=== PATIENT | female | born 1950 | race American Indian/Alaskan Native ===

== ENCOUNTER 2017-04-03 16:13 | Emergency (ER) | payer MEDICARE ==
[2017-04-03] MEDS ORDERED: PROVENTIL IH ONE (16:58)
[2017-04-03] MEDS ORDERED: DECADRON IV ONE (16:59)
[2017-04-03 18:22] LABS: Basophils % (Auto) 0.4 % (0.0-1.8); Eosinophils % (Auto) 3.7 % (0.0-4.3); Hematocrit 36.4 % (30.3-42.9); Hemoglobin 11.9 gm/dl (10.1-14.3); Mean Corpuscular HGB Conc 33 % (30-34); Mean Corpuscular Hemoglobin 28 pg (28-32); Mean Corpuscular Volume 85 fl (79-97); Platelet Count 326 K/mm3 (140-440); Red Blood Count 4.29 M/mm3 (3.65-5.03); Red Cell Distribution Width 16.6 % (13.2-15.2); White Blood Count 7.8 K/mm3 (4.5-11.0)
[2017-04-03 18:56] LABS: Anion Gap 18 mmol/L; BUN/Creatinine Ratio 11.66; Blood Urea Nitrogen 7 mg/dL (7-17); Calcium 9.7 mg/dL (8.4-10.2); Carbon Dioxide 23 mmol/L (22-30); Chloride 104.4 mmol/L (98-107); Glucose 127 mg/dL (65-100); Potassium 4.5 mmol/L (3.6-5.0); Sodium 141 mmol/L (137-145)
--- NOTE | 2017-04-03 21:46 | Emergency Department Report ---
HPI - General Chief Complaint: Upper Respiratory Infection Time Seen by Provider: 04/03/17 16:53 - HPI HPI: Patient would cough, congestion, upper respiratory wheezing sent from [facility] with the symptoms lasting about a day. Patient is without fever. Patient is status post CVA. ED Past Medical Hx - Past Medical History Previous Medical History?: Yes Hx Hypertension: Yes Hx Congestive Heart Failure: Yes Hx Diabetes: Yes Hx Seizures: Yes Hx Dementia: Yes - Surgical History Past Surgical History?: No - Social History Smoking Status: Unknown if ever smoked Substance Use Type: None - Medications Home Medications: Home Medications Medication Instructions Recorded Confirmed Last Taken Type Acetaminophen [Tylenol] 2 tab PO PRN 09/13/13 09/13/13 09/13/13 History Aspirin [Aspirin] 1 tab PO DAILY 09/13/13 09/13/13 09/12/13 History Carvedilol [Coreg] 1 tab PO BID 09/13/13 09/13/13 09/13/13 History Clopidogrel Bisulfate [Plavix] 1 tab PO DAILY 09/13/13 09/13/13 09/12/13 History Docusate Sodium [Colace] 1 tab PO TID 09/13/13 09/13/13 09/13/13 History Famotidine [Pepcid] 20 mg PO DAILY 09/13/13 09/13/13 09/13/13 History Fluticasone Propionate [Flonase] 2 spray INNOSTRIL DAILY 09/13/13 09/13/1309/13 History Furosemide [Lasix] 10 mg PO DAILY 09/13/13 09/13/13 09/13/13 History Gabapentin [Neurontin] 1 tab PO TID 09/13/13 09/13/13 09/13/13 History Gemfibrozil [Lopid] 1 tab PO DAILY 09/13/13 09/13/13 09/13/13 History Insulin Glargine,Hum.rec.anlog 20 units SC HS 09/13/13 09/13/13 09/12/13 History [Lantus Solostar] Insulin Regular, Human [HumuLIN R] 6 - 12 units SC AC 09/13/13 09/13/13 Unknown History Latanoprost [Xalatan 0.005% eye 1 drop OU HS 09/13/13 09/13/13 09/12/13 History drops] Loratadine [Claritin] 1 tab PO PRN 09/13/13 09/13/13 Unknown History Losartan [Cozaar] 1 tab PO DAILY 09/13/13 09/13/13 09/13/13 History Magnesium Hydroxide [Milk of 30 ml PO PRN 09/13/13 09/13/13 Unknown History Magnesia] Memantine HCl [Namenda] 1 tab PO BID 09/13/13 09/13/13 09/13/13 History Potassium Chloride [Potassium 1 tab PO DAILY 09/13/13 09/13/13 09/13/13 History Chloride] Sennosides/Docusate Sodium [Senna 1 tab PO BID 09/13/13 09/13/13 09/13/13 History S Tablet] Sertraline [Zoloft] 50 mg PO DAILY 09/13/13 09/13/13 09/13/13 History diphenhydrAMINE [Benadryl] 25 mg PO PRN 09/13/13 09/13/13 Unknown History glipiZIDE [Glucotrol] 10 mg PO BID 09/13/13 09/13/13 09/13/13 History guaiFENesin/DEXTROMETHORPHAN 10 ml PO PRN 09/13/13 09/13/13 Unknown History [Guaifenesin Dm Syrup] hydrALAZINE [Apresoline TAB] 1 tab PO BID 09/13/13 09/13/13 09/13/13 History levETIRAcetam [Keppra] 1 tab PO DAILY 09/13/13 09/13/13 09/13/13 History Azithromycin [Zithromax] 250 mg PO DAILY #6 tablet 04/03/17 Unknown Rx ED Review of Systems ROS: Stated complaint: COUGHING/WHEEZING Other details as noted in HPI Comment: All other systems reviewed and negative ENT: congestion Respiratory: cough, wheezing Physical Exam - Physical Exam Vital Signs: Vital Signs 04/03/17 04/03/17 17:08 18:08 Temperature 98.3 F Pulse Rate 84 Pulse Rate [ 80 Right Middle Lobe] Respiratory 18 Rate Respiratory 20 Rate [Right Middle Lobe] Blood Pressure 140/74 [Left] O2 Sat by Pulse 96 Oximetry Physical Exam: Gen. alert and oriented 3 in no distress Head atraumatic normocephalic Eyes PERR LA EOMI Chest regular rate and rhythm normal S1-S2 lungs mild expiratory wheezing Abdomen soft nondistended Back no point tenderness paravertebral tenderness Neuro no focal deficit. Psych normal mood. ED Course Vital Signs 04/03/17 04/03/17 17:08 18:08 Temperature 98.3 F Pulse Rate 84 Pulse Rate [ 80 Right Middle Lobe] Respiratory 18 Rate Respiratory 20 Rate [Right Middle Lobe] Blood Pressure 140/74 [Left] O2 Sat by Pulse 96 Oximetry ED Medical Decision Making - Lab Data Result diagrams: 04/03/17 18:06 04/03/17 18:06 Critical care attestation.: If time is entered above; I have spent that time in minutes in the direct care of this critically ill patient, excluding procedure time. ED Disposition Clinical Impression: Acute bronchitis Disposition: DC-01 TO HOME OR SELFCARE Is pt being admited?: No Does the pt Need Aspirin: No Condition: Stable Instructions: Acute Bronchitis (ED) Prescriptions: Azithromycin [Zithromax] 250 mg PO DAILY #6 tablet Referrals: PRIMARY CARE, [Primary Care Provider] - 3-5 Days
[2017-04-03 22:31] VITALS: BP 146/92
--- NOTE | 2017-04-04 09:13 | XRay Report ---
Chest 2 views: History shortness of breath. Findings: Marked cardiomegaly the trachea is midline. No consolidation, pneumothorax. Left minimal pleural effusion. Impression: Cardiomegaly. Minimal left pleural effusion.
== END 2017-04-03 22:34 | disposition home or self-care (01) ==
LOC: ED 16:13
DX: J20.9 Acute bronchitis, unspecified (principal); Z79.82 Long term (current) use of aspirin; I10 Essential (primary) hypertension; I50.9 Heart failure, unspecified; E11.9 Type 2 diabetes mellitus without complications; F03.90 Unspecified dementia, unspecified severity, without behavioral disturbance, psychotic disturbance, mood disturbance, and anxiety; Z88.0 Allergy status to penicillin; Z88.8 Allergy status to other drugs, medicaments and biological substances
CPT/HCPCS: 36415; 71020; 80048; 84484; 85025; 93005; 93010; 94640; 96374; 99284; J1100

== ENCOUNTER 2018-04-09 14:42 | Inpatient (IN) | payer MEDICARE ==
[2018-04-09 15:44] LABS: Basophils # (Auto) 0.1 K/mm3 (0.0-0.1); Basophils % (Auto) 0.5 % (0.0-1.8); Eosinophils # (Auto) 0.2 K/mm3 (0.0-0.4); Eosinophils % (Auto) 1.9 % (0.0-4.3); Hematocrit 37.6 % (30.3-42.9); Hemoglobin 12.2 gm/dl (10.1-14.3); Lymphocytes % (Auto) 27.5 % (13.4-35.0); Mean Corpuscular HGB Conc 32 % (30-34); Mean Corpuscular Hemoglobin 27 pg (28-32); Mean Corpuscular Volume 82 fl (79-97); Monocytes # (Auto) 0.5 K/mm3 (0.0-0.8); Monocytes % (Auto) 4.4 % (0.0-7.3); Platelet Count 318 K/mm3 (140-440); Red Cell Distribution Width 18.9 % (13.2-15.2)
[2018-04-09 15:54] LABS: BUN/Creatinine Ratio 12; Blood Urea Nitrogen 6 mg/dL (7-17); Calcium 8.8 mg/dL (8.4-10.2); Hemolysis Index 6
--- NOTE | 2018-04-09 16:56 | XRay Report ---
FINAL REPORT EXAM: XR CHEST ROUTINE 2V HISTORY: Cough, SOB TECHNIQUE: AP portable view of the chest PRIORS: None. FINDINGS: Lines, tubes, and devices: N/A Lungs and pleura: Trachea is normal in position. There is a small lateral left pleural effusion minimal left basilar atelectasis Cardiomediastinal silhouette: Heart is markedly enlarged. Other: Bony structures are intact. IMPRESSION: Small left pleural effusion left basilar atelectasis. Cardiomegaly.
--- NOTE | 2018-04-10 00:18 | Emergency Department Report ---
HPI - General Chief Complaint: Dyspnea/Respdistress Time Seen by Provider: 04/09/18 23:10 - HPI HPI: Room 1 The patient is a 68-year-old female presenting with chief complaint of cough. The patient states she began having a nonproductive cough last month. Family states the patient was being treated at the [facility] cough medication but did not improve. Cough has been persistent and remains nonproductive. The patient's daughter noticed the patient had a "low-grade fever" this week. The patient's family wanted the patient be sent to the emergency department for evaluation however the [facility] sent patient to her staffing and scheduling coordinator's office today for evaluation. The patient had an echocardiogram performed in the office today that was read as "poor study with small pericardial effusion LVEF in the range of 45-50%" the patient was sent to the ED by the staffing and scheduling coordinator for CT scan of the chest to reevaluate the pericardial effusion, rule out pulmonary edema and evaluate for pneumonia given her cough and recent fever. Patient denies shortness of breath, chest pain or pain of any type Location: Pulmonary system Duration: [See above] Quality: Nonproductive Severity: Moderate Modifying factors: [see above] Context: [see above] Mode of transportation: [not driving] ED Past Medical Hx - Past Medical History Hx Hypertension: Yes Hx Congestive Heart Failure: Yes Hx Diabetes: Yes Hx Seizures: Yes Hx Dementia: Yes - Surgical History Past Surgical History?: No - Family History Family history: no significant - Social History Smoking Status: Former Smoker Substance Use Type: None - Medications Home Medications: Home Medications Medication Instructions Recorded Confirmed Last Taken Type Acetaminophen [Tylenol] 2 tab PO PRN 09/13/13 09/13/13 09/13/13 History Aspirin 1 tab PO DAILY 09/13/13 09/13/13 09/12/13 History Carvedilol [Coreg] 1 tab PO BID 09/13/13 09/13/13 09/13/13 History Clopidogrel Bisulfate [Plavix] 1 tab PO DAILY 09/13/13 09/13/13 09/12/13 History Docusate Sodium [Colace] 1 tab PO TID 09/13/13 09/13/13 09/13/13 History Famotidine [Pepcid] 20 mg PO DAILY 09/13/13 09/13/13 09/13/13 History Fluticasone Propionate [Flonase] 2 spray INNOSTRIL DAILY 09/13/13 09/13/1309/13 History Furosemide [Lasix] 10 mg PO DAILY 09/13/13 09/13/13 09/13/13 History Gabapentin [Neurontin] 1 tab PO TID 09/13/13 09/13/13 09/13/13 History Gemfibrozil [Lopid] 1 tab PO DAILY 09/13/13 09/13/13 09/13/13 History Insulin Glargine,Hum.rec.anlog 20 units SC HS 09/13/13 09/13/13 09/12/13 History [Lantus Solostar] Insulin Regular, Human [HumuLIN R] 6 - 12 units SC AC 09/13/13 09/13/13 Unknown History Latanoprost [Xalatan 0.005% eye 1 drop OU HS 09/13/13 09/13/13 09/12/13 History drops] Loratadine [Claritin] 1 tab PO PRN 09/13/13 09/13/13 Unknown History Losartan [Cozaar] 1 tab PO DAILY 09/13/13 09/13/13 09/13/13 History Magnesium Hydroxide [Milk of 30 ml PO PRN 09/13/13 09/13/13 Unknown History Magnesia] Memantine HCl [Namenda] 1 tab PO BID 09/13/13 09/13/13 09/13/13 History Potassium Chloride 1 tab PO DAILY 09/13/13 09/13/13 09/13/13 History Sennosides/Docusate Sodium [Senna 1 tab PO BID 09/13/13 09/13/13 09/13/13 History S Tablet] Sertraline [Zoloft] 50 mg PO DAILY 09/13/13 09/13/13 09/13/13 History diphenhydrAMINE [Benadryl] 25 mg PO PRN 09/13/13 09/13/13 Unknown History glipiZIDE [Glucotrol] 10 mg PO BID 09/13/13 09/13/13 09/13/13 History guaiFENesin/DEXTROMETHORPHAN 10 ml PO PRN 09/13/13 09/13/13 Unknown History [Guaifenesin Dm Syrup] hydrALAZINE [Apresoline TAB] 1 tab PO BID 09/13/13 09/13/13 09/13/13 History levETIRAcetam [Keppra] 1 tab PO DAILY 09/13/13 09/13/13 09/13/13 History Azithromycin [Zithromax] 250 mg PO DAILY #6 tablet 04/03/17 Unknown Rx ED Review of Systems ROS: Stated complaint: CAT SCAN FOR HEART Other details as noted in HPI Constitutional: fever Eyes: denies: eye pain ENT: denies: throat pain Respiratory: cough. denies: shortness of breath Cardiovascular: denies: chest pain Endocrine: no symptoms reported Gastrointestinal: denies: abdominal pain Genitourinary: denies: dysuria Musculoskeletal: denies: back pain Neurological: denies: headache Physical Exam - Physical Exam Vital Signs: Vital Signs 04/09/18 04/09/18 04/09/18 15:05 20:22 20:30 Temperature 98.6 F Pulse Rate 74 Respiratory 18 Rate Blood Pressure 121/55 178/69 O2 Sat by Pulse 94 94 97 Oximetry 04/09/18 04/09/18 04/09/18 20:40 20:46 21:00 Temperature Pulse Rate Respiratory 22 Rate Blood Pressure 178/69 164/57 O2 Sat by Pulse 95 98 97 Oximetry 04/09/18 04/09/18 04/09/18 21:16 21:30 21:46 Temperature Pulse Rate Respiratory Rate Blood Pressure 164/57 170/69 170/69 O2 Sat by Pulse 97 97 96 Oximetry 04/09/18 04/09/18 22:00 22:16 Temperature Pulse Rate Respiratory Rate Blood Pressure 170/67 O2 Sat by Pulse 95 95 Oximetry Physical Exam: GENERAL: The patient is well-developed well-nourished female lying on stretcher not appearing to be in acute distress. [] HEENT: Normocephalic. Atraumatic. Extraocular motions are intact. Patient has moist mucous membranes. NECK: Supple. Trachea midline CHEST/LUNGS: Clear to auscultation. There is no respiratory distress noted. HEART/CARDIOVASCULAR: Regular. There is no tachycardia. There is no gallop rub or murmur. ABDOMEN: Abdomen is soft, nontender. Patient has normal bowel sounds. There is no abdominal distention. SKIN: There is no rash. Patient has tension extremity devices in place. There is no diaphoresis. NEURO: The patient is awake, alert, and oriented. The patient is cooperative. The patient has normal speech MUSCULOSKELETAL: There is no evidence of acute injury. ED Course Vital Signs 04/09/18 04/09/18 04/09/18 15:05 20:22 20:30 Temperature 98.6 F Pulse Rate 74 Respiratory 18 Rate Blood Pressure 121/55 178/69 O2 Sat by Pulse 94 94 97 Oximetry 04/09/18 04/09/18 04/09/18 20:40 20:46 21:00 Temperature Pulse Rate Respiratory 22 Rate Blood Pressure 178/69 164/57 O2 Sat by Pulse 95 98 97 Oximetry 04/09/18 04/09/18 04/09/18 21:16 21:30 21:46 Temperature Pulse Rate Respiratory Rate Blood Pressure 164/57 170/69 170/69 O2 Sat by Pulse 97 97 96 Oximetry 04/09/18 04/09/18 22:00 22:16 Temperature Pulse Rate Respiratory Rate Blood Pressure 170/67 O2 Sat by Pulse 95 95 Oximetry - Consultations Consultation #1: 04/10/18 01:50 Cardiology paged 04/10/18 01:[address] Gallego- recommends admitting patient to the hospital for potential IR pericardiocentesis ED Medical Decision Making - Lab Data Result diagrams: 04/09/18 15:29 04/09/18 15:29 Laboratory Tests 04/09/18 04/09/18 04/10/18 15:29 15:29 Unknown WBC 10.9 RBC 4.60 Hgb 12.2 Hct 37.6 MCV 82 MCH 27 L MCHC 32 RDW 18.9 H Plt Count 318 Lymph % (Auto) 27.5 [place] % (Auto) 4.4 Eos % (Auto) 1.9 Baso % (Auto) 0.5 Lymph # 3.0 [place] # 0.5 Eos # 0.2 Baso # 0.1 Seg Neutrophils % 65.7 Seg Neutrophils # 7.2 Sodium 131 L Potassium 4.0 Chloride 94.1 L Carbon Dioxide 26 Anion Gap 15 BUN 6 L Creatinine 0.5 L Estimated GFR > 60 BUN/Creatinine Ratio 12 Glucose 140 H Calcium 8.8 Total Creatine Kinase 62 CK-MB (CK-2) 1.4 CK-MB (CK-2) Rel Index 2.2 Troponin T < 0.010 NT-Pro-B Natriuret Pep 51.33 - Radiology Data Radiology results: report reviewed (chest x-ray, CT chest), image reviewed (CT chest, chest x-ray) interpreted by me: Chest x-ray-left costophrenic angle obscured/pleural effusion [facility] [address] [place] [address] Cat Scan Report Signed Patient: BERYL MADDEN MR#: [id number] : 1950 Acct:[id number] Age/Sex: 68 / F ADM Date: 04/09/18 Loc: ED Attending Dr: Ordering Physician: ADAMA SANTIAGO MD Date of Service: 04/09/18 Procedure(s): CT angio chest Accession Number(s): [id number] cc: ADAMA SANTIAGO MD FINAL REPORT EXAM: CT ANGIO CHEST HISTORY: shortness of breath. History of pericardial effus TECHNIQUE: A CT angiogram was performed following the intravenous injection of iodinated contrast. Sagittal and coronal MIP reconstructions were reviewed. FINDINGS: The heart size is normal. There is moderate size pericardial effusion. There is no evidence of pulmonary embolus or vascular congestion. The lungs reveal atelectatic changes in both lower lobes and in the lingula pleural fluid is not seen. There is no evidence of adenopathy. The thoracic aorta is normal in caliber. There is no evidence of dissection. At the thoracic inlet the thyroid gland appears normal. In the upper abdomen the adrenal glands are not enlarged. The skeletal structures reveal multilevel disc degeneration in the dorsal spine. IMPRESSION: Moderate size pericardial effusion. No evidence of pulmonary embolus, or vascular congestion. Mild atelectatic changes in both lower lobes and to lesser extent in the lingula. Transcribed By: RB Dictated By: SAMMIE ROSS MD Electronically Authenticated By: SAMMIE ROSS MD Signed Date/Time: 04/10/18140 DD/ 0 TD/TT: 04/10/18140 Critical care attestation.: If time is entered above; I have spent that time in minutes in the direct care of this critically ill patient, excluding procedure time. ED Disposition Clinical Impression: Pericardial effusion, Cough Disposition: OP ADMIT IP TO THIS HOSP Is pt being admited?: Yes Does the pt Need Aspirin: No Condition: Stable Referrals: PRIMARY CARE, [Primary Care Provider] - 3-5 Days Time of Disposition: 01:56 (hospitalist paged (Dr Nunez))
[2018-04-10 01:05] LABS: Creatine Kinase MB 1.4 ng/mL (0.0-4.0)
--- NOTE | 2018-04-10 01:46 | Cat Scan Report ---
FINAL REPORT EXAM: CT ANGIO CHEST HISTORY: shortness of breath. History of pericardial effus TECHNIQUE: A CT angiogram was performed following the intravenous injection of iodinated contrast. Sagittal and coronal MIP reconstructions were reviewed. FINDINGS: The heart size is normal. There is moderate size pericardial effusion. There is no evidence of pulmonary embolus or vascular congestion. The lungs reveal atelectatic changes in both lower lobes and in the lingula pleural fluid is not seen. There is no evidence of adenopathy. The thoracic aorta is normal in caliber. There is no evidence of dissection. At the thoracic inlet the thyroid gland appears normal. In the upper abdomen the adrenal glands are not enlarged. The skeletal structures reveal multilevel disc degeneration in the dorsal spine. IMPRESSION: Moderate size pericardial effusion. No evidence of pulmonary embolus, or vascular congestion. Mild atelectatic changes in both lower lobes and to lesser extent in the lingula.
[2018-04-10] MEDS ORDERED: SODIUM CHLORIDE FLUSH SYRINGE 10 ML IV PRN (03:13)
[2018-04-10] MEDS ORDERED: ZOFRAN IV PRN (03:13)
[2018-04-10] MEDS ORDERED: NORCO 5/325 PO PRN (03:13)
[2018-04-10] MEDS ORDERED: TYLENOL PO PRN (03:13)
[2018-04-10] MEDS ORDERED: D50W (25GM) Syringe IV PRN (03:17)
--- NOTE | 2018-04-10 04:29 | History and Physical Report ---
History of Present Illness Date of examination: 04/10/18 Date of admission: 04/10/18 Chief complaint: Cough History of present illness: Patient is a 68-year-old -[place] female with history of CHF and CVA, [facility] who was sent to the ED by the geophysical e logger for further evaluation of an abnormal finding on her echocardiogram. Per the patient's daughter, she has been having persistent cough for the past 1 month. This was initially evaluated with a chest x-ray which showed mild pleural effusion. Thereafter, she had an echocardiogram done which showed EF of 45-50% with mild pericardial effusion. CTA chest was then recommended for further evaluation, which showed moderate pericardial effusion. Patient had recent fever without chills at the prison. She denies shortness of breath, chest pain, palpitation, leg swelling, headaches, orthopnea or PND. No dizziness syncope or loss of consciousness. No abdominal pain, constipation, diarrhea, dysuria or frequency. Past History Past Medical History: diabetes, hypertension, seizures, other (CHF, dementia, asthma, CVA with left sided residual weakness) Past Surgical History: hysterectomy Social history: smoking (ex-smoker, quit 10 years ago. She denies alcohol or illicit drug use) Family history: other (reviewed and noncontributory) Medications and Allergies Allergies Allergy/AdvReac Type Severity Reaction Status Date / Time lisinopril AdvReac Unknown Verified 09/13/13 15:13 Penicillins AdvReac Unknown Verified 09/13/13 15:13 red dye AdvReac Unknown Verified 09/13/13 15:13 Home Medications Medication Instructions Recorded Confirmed Last Taken Type Aspirin 1 tab PO DAILY 09/13/13 09/13/13 09/12/13 History Carvedilol [Coreg] 1 tab PO BID 09/13/13 09/13/13 09/13/13 History Clopidogrel Bisulfate [Plavix] 1 tab PO DAILY 09/13/13 09/13/13 09/12/13 History Furosemide [Lasix] 10 mg PO DAILY 09/13/13 09/13/13 09/13/13 History Gabapentin [Neurontin] 1 tab PO TID 09/13/13 09/13/13 09/13/13 History Gemfibrozil [Lopid] 1 tab PO DAILY 09/13/13 09/13/13 09/13/13 History Insulin Glargine,Hum.rec.anlog 20 units SC HS 09/13/13 09/13/13 09/12/13 History [Lantus Solostar] Insulin Regular, Human [HumuLIN R] 6 - 12 units SC AC 09/13/13 09/13/13 Unknown History Loratadine [Claritin] 1 tab PO PRN 09/13/13 09/13/13 Unknown History Losartan [Cozaar] 1 tab PO DAILY 09/13/13 09/13/13 09/13/13 History Memantine HCl [Namenda] 1 tab PO BID 09/13/13 09/13/13 09/13/13 History Potassium Chloride 1 tab PO DAILY 09/13/13 09/13/13 09/13/13 History Sennosides/Docusate Sodium [Senna 1 tab PO BID 09/13/13 09/13/13 09/13/13 History S Tablet] Sertraline [Zoloft] 50 mg PO DAILY 09/13/13 09/13/13 09/13/13 History glipiZIDE [Glucotrol] 10 mg PO BID 09/13/13 09/13/13 09/13/13 History hydrALAZINE [Apresoline TAB] 1 tab PO BID 09/13/13 09/13/13 09/13/13 History levETIRAcetam [Keppra] 1 tab PO DAILY 09/13/13 09/13/13 09/13/13 History Active Meds: Active Medications Acetaminophen (Tylenol) 650 mg PO Q4H PRN PRN Reason: Pain MILD(1-3)/Fever >100.5/BENSON Acetaminophen/Hydrocodone Bitart ([place] 5/325) 1 each PO Q6H PRN PRN Reason: Pain, Moderate (4-6) Dextrose (D50w (25gm) Syringe) 50 ml IV PRN PRN PRN Reason: Hypoglycemia Enoxaparin Sodium (Lovenox) 40 mg SUB-Q QDAY JONNY Insulin Glargine (Lantus) 10 units SUB-Q QHS JONNY Insulin Human Lispro (Humalog) 0 unit SUB-Q ACHS JONNY; Protocol Ondansetron HCl (Zofran) 4 mg IV Q8H PRN PRN Reason: Nausea And Vomiting Sodium Chloride (Sodium Chloride Flush Syringe 10 Ml) 10 ml IV BID JONNY Sodium Chloride (Sodium Chloride Flush Syringe 10 Ml) 10 ml IV PRN PRN PRN Reason: LINE FLUSH Review of Systems All systems: negative (except as documented in the HPI, all other systems were reviewed and negative) Exam - Constitutional Vitals: Temp Pulse Resp BP Pulse Ox 98.6 F 74 22 166/66 96 04/09/18 15:05 04/09/18 15:05 04/09/18 20:40 04/09/18 23:46 04/09/18 23:46 General appearance: Present: no acute distress, well-nourished - EENT Eyes: Present: PERRL, EOM intact ENT: hearing intact, clear oral mucosa - Neck Neck: Present: supple, normal ROM - Respiratory Respiratory effort: normal Respiratory: bilateral: CTA - Cardiovascular Rhythm: regular Heart Sounds: Present: S1 & S2. Absent: rub, click - Extremities Extremities: No edema Peripheral Pulses: within normal limits - Abdominal General gastrointestinal: Present: soft, non-tender, non-distended, normal bowel sounds - Integumentary Integumentary: Present: clear, warm, dry - Musculoskeletal Musculoskeletal: left sided weakness - Neurologic Neurologic: other (Alert and oriented) Results - Labs CBC & Chem 7: 04/09/18 15:29 04/09/18 15:29 Labs: Laboratory Last Values WBC 10.9 K/mm3 (4.5-11.0) 04/09/18 15:29 RBC 4.60 M/mm3 (3.65-5.03) 04/09/18 15:29 Hgb 12.2 gm/dl (10.1-14.3) 04/09/18 15:29 Hct 37.6 % (30.3-42.9) 04/09/18 15:29 MCV 82 fl (79-97) 04/09/18 15:29 MCH 27 pg (28-32) L 04/09/18 15:29 MCHC 32 % (30-34) 04/09/18 15:29 RDW 18.9 % (13.2-15.2) H 04/09/18 15:29 Plt Count 318 K/mm3 (140-440) 04/09/18 15:29 Lymph % (Auto) 27.5 % (13.4-35.0) 04/09/18 15:29 [place] % (Auto) 4.4 % (0.0-7.3) 04/09/18 15:29 Eos % (Auto) 1.9 % (0.0-4.3) 04/09/18 15:29 Baso % (Auto) 0.5 % (0.0-1.8) 04/09/18 15: Lymph # 3.0 K/mm3 (1.2-5.4) 04/09/18 15: [place] # 0.5 K/mm3 (0.0-0.8) 04/09/18 15: Eos # 0.2 K/mm3 (0.0-0.4) 04/09/18 15: Baso # 0.1 K/mm3 (0.0-0.1) 04/09/18 15: Seg Neutrophils % 65.7 % (40.0-70.0) 04/09/18 15: Seg Neutrophils # 7.2 K/mm3 (1.8-7.7) 04/09/18 15:29 Sodium 131 mmol/L (137-145) L 04/09/18 15:29 Potassium 4.0 mmol/L (3.6-5.0) 04/09/18 15: Chloride 94.1 mmol/L (98-107) L 04/09/18 15: Carbon Dioxide 26 mmol/L (22-30) 04/09/18 15:29 Anion Gap 15 mmol/L 04/09/18 15:29 BUN 6 mg/dL (7-17) L 04/09/18 15:29 Creatinine 0.5 mg/dL (0.7-1.2) L 04/09/18 15:29 Estimated GFR > 60 ml/min 04/09/18 15:29 BUN/Creatinine Ratio 12 % 04/09/18 15: Glucose 140 mg/dL (65-100) H 04/09/18 15: Calcium 8.8 mg/dL (8.4-10.2) 04/09/18 15:29 Total Creatine Kinase 62 units/L (30-135) 04/10/18 Unknown CK-MB (CK-2) 1.4 ng/mL (0.0-4.0) 04/10/18 Unknown CK-MB (CK-2) Rel Index 2.2 (0-4) 04/10/18 Unknown Troponin T < 0.010 ng/mL (0.00-0.029) 04/10/18 Unknown NT-Pro-B Natriuret Pep 51.33 pg/mL (0-900) 04/10/18 Unknown Assessment and Plan Assessment and plan: Moderate pericardial effusion -Cardiology consulted Chronic cough -Mucinex and nebulizer breathing treatments Hyponatremia -Placed on fluid restriction -Will monitor sodium level IDDM2 -on SSI History of CVA with residual left-sided weakness -Stable Hypertension -Resume home antihypertensives when reconciled -PRN IV hydralazine Seizure disorder -Resume antiseizure agents when reconciled -Seizure precautions History of dementia without behavioral disturbances History of asthma -No acute exacerbation Prophylaxis -DVT prophylaxis with Lovenox 38 minutes spent coordinating care
[2018-04-10] MEDS ORDERED: APRESOLINE IV PRN (04:41)
[2018-04-10] MEDS: MUCINEX ER PO SCH ×2 (06:35→22:07)
[2018-04-10] MEDS: PROVENTIL IH SCH ×4 (07:53→20:01)
[2018-04-10] MEDS: HumaLOG SUB-Q SCH ×4 (08:20→22:27)
--- NOTE | 2018-04-10 09:19 | Consultation ---
HISTORY OF PRESENT ILLNESS: The patient is a 68-year-old female who has dysarthric speech and it is difficult to obtain a history from. She has a history of a previous stroke and heart failure. She is a [facility] resident. She is a prior smoker and gives no history of COPD. She has been coughing for about a month and was noted to have a fever a few days ago. She had an echocardiogram that demonstrated a small pericardial effusion and mild LV dysfunction. A small pleural effusion was also noted. She underwent a CAT scan that demonstrated similar findings. She was admitted for further evaluation. She states that the fever has resolved. There is no fever, chills, sputum, chest pain, palpitations, or significant ankle swelling. She has had mild ankle edema in the past. She did not describe any lung disorders or sleeping disorders. There have been no rashes or swollen joints. She is bedridden. She has left hemiparesis. PAST MEDICAL HISTORY: Diabetes, hypertension, seizures, dementia. ALLERGIES: MULTIPLE INCLUDING RED DYE, PENICILLIN, LISINOPRIL. MEDICATIONS: See the nurse's list. OPERATIONS: Hysterectomy. SOCIAL HISTORY: Smoking: Stopped smoking 10 years ago. Alcohol: No heavy use. FAMILY HISTORY: Noncontributory. REVIEW OF SYSTEMS: Also history of asthma. There is no description of disorders, GI disorders, bedsores, psychiatric problems or renal disorders. PHYSICAL EXAMINATION: GENERAL: Well-developed, moderately obese, no acute distress, alert, cooperative, unclear if she is oriented due to dysarthric speech. EYES, NOSE, AND THROAT: Unremarkable for dysarthric speech. NECK: Reveals no JVD or bruits. Neck is supple, no masses. LUNGS: Clear. No labored respirations. Does not take a deep breath on examination. CARDIOVASCULAR: Regular rhythm, S4 gallop. Grade 1 systolic murmur. ABDOMEN: Soft, nontender, no masses. EXTREMITIES: No cyanosis or clubbing. There is trace pedal edema. Peripheral pulses are intact, but diminished. NEUROLOGIC: Grossly left hemiplegia with dysarthria. SKIN: Clear. IMPRESSION: 1. Relatively small pericardial effusion and a recent fever: The patient is hemodynamically stable. There are no signs of an active infection now. A common cause would be a recent viral infection. There is no suggestion of collagen vascular disorder or any forms of cancer at this time. I would recommend that the TSH be checked and that the echocardiogram be repeated. Consider NAOMIE, rheumatoid factor, sed rate. 2. History of previous stroke with left hemiparalysis. 3. History of heart failure: Recent echocardiogram demonstrated an ejection fraction of 45%-50%. 4. Diabetes. 5. Hypertension, controlled. 6. Prior smoker. 7. History of dementia. 8. History of seizures. PLAN: Conservative therapy. Repeat echocardiogram. Laboratories. Thank you for this consultation. JOB# [id number] JDS/NTS
[2018-04-10] MEDS: LOVENOX SUB-Q SCH (10:18)
[2018-04-10] MEDS: SODIUM CHLORIDE FLUSH SYRINGE 10 ML IV SCH ×2 (10:23→22:09)
--- NOTE | 2018-04-10 15:17 | Progress Note ---
Assessment and Plan Assessment and plan: Ms. Louis is a 68 yo woman from [place] with a history of hypertension, cva with dysarthia and left hemiparesis, seizure disorder, ex smoker, asthma, dementia and dm type 2 who was sent for evaluation of pericardial effusion which was seen on ECHO at the [facility] office. per ED records the "Family states the patient was being treated at the retirement cough medication but did not improve. Cough has been persistent and remains nonproductive. The patient's daughter noticed the patient had a "low-grade fever" this week. The patient's family wanted the patient be sent to the emergency department for evaluation however the retirement sent patient to her home based assistant's office today for evaluation. The patient had an echocardiogram performed in the office today that was read as "poor study with small pericardial effusion LVEF in the range of 45-50%" the patient was sent to the ED by the home based assistant for CT scan of the chest to reevaluate the pericardial effusion, rule out pulmonary edema and evaluate for pneumonia given her cough and recent fever." * CTA chest IMPRESSION: Moderate size pericardial effusion. No evidence of pulmonary embolus, or vascular congestion. Mild atelectatic changes in both lower lobes and to lesser extent in the lingula. -Pericardial effusion: Cardiology recommends repeating ECHO -Cough most likely related to the above: Mucinex and nebulizer breathing treatments -Hyponatremia: Placed on fluid restriction, monitor sodium level -IDDM2: ada diet, ssi, check a1c -History of CVA with residual left-sided weakness -Hypertension: Resume home antihypertensives when reconciled, PRN IV hydralazine -Seizure disorder: Resume antiseizure agents when reconciled, Seizure precautions -History of dementia without behavioral disturbances -History of asthma w/o acute exacerbation -DVT prophylaxis with Lovenox History Interval history: Patient was seen and examined. Follow-up on current diagnosis of cough, still present. Overnight uneventful. Patient denies any chest pain, shortness breath, nausea/vomiting or severe headaches. Imaging, nursing note, chart, labs and old chart reviewed. Discussed with patient. Hospitalist Physical - Physical exam Narrative exam: GEN: WDWN, NAD, Awake, Alert, Orientated HEENT: NCAT, EOMI, PERRL, OP Clear NECK: supple, no adenopathy, no thyromegaly, no JVD CVS/HEART: RRR, normal S1S2, pulses present bilaterally CHEST/LUNGS: CTA B, Symmetrical chest expansion, good air entry bilaterally GI/Abdomen: soft, NTND, good bowel sounds, no guarding or rebound /Bladder: no suprapubic tenderness, no CVA or paraspinal tenderness EXT/Skin: no c/c/e, no obvious rash MSK: FROM x 4 Neuro: CN 2-12 grossly intact, no new focal deficits Psych: calm - Constitutional Vitals: Temp Pulse Resp BP Pulse Ox 98.2 F 79 20 169/69 98 04/10/18 08:01 04/10/18 11:33 04/10/18 11:33 04/10/18 10:28 04/10/18 11:33 General appearance: Present: no acute distress, well-nourished Results - Labs CBC & Chem 7: 04/09/18 15:29 04/09/18 15:29 Labs: Laboratory Last Values WBC 10.9 K/mm3 (4.5-11.0) 04/09/18 15:29 RBC 4.60 M/mm3 (3.65-5.03) 04/09/18 15:29 Hgb 12.2 gm/dl (10.1-14.3) 04/09/18 15:29 Hct 37.6 % (30.3-42.9) 04/09/18 15:29 MCV 82 fl (79-97) 04/09/18 15:29 MCH 27 pg (28-32) L 04/09/18 15: MCHC 32 % (30-34) 04/09/18 15:29 RDW 18.9 % (13.2-15.2) H 04/09/18 15:29 Plt Count 318 K/mm3 (140-440) 04/09/18 15:29 Lymph % (Auto) 27.5 % (13.4-35.0) 04/09/18 15:29 [place] % (Auto) 4.4 % (0.0-7.3) 04/09/18 15:29 Eos % (Auto) 1.9 % (0.0-4.3) 04/09/18 15: Baso % (Auto) 0.5 % (0.0-1.8) 04/09/18 15:29 Lymph # 3.0 K/mm3 (1.2-5.4) 04/09/18 15:29 [place] # 0.5 K/mm3 (0.0-0.8) 04/09/18 15: Eos # 0.2 K/mm3 (0.0-0.4) 04/09/18 15:29 Baso # 0.1 K/mm3 (0.0-0.1) 04/09/18 15:29 Seg Neutrophils % 65.7 % (40.0-70.0) 04/09/18 15:29 Seg Neutrophils # 7.2 K/mm3 (1.8-7.7) 04/09/18 15:29 Sodium 131 mmol/L (137-145) L 04/09/18 15: Potassium 4.0 mmol/L (3.6-5.0) 04/09/18 15:29 Chloride 94.1 mmol/L (98-107) L 04/09/18 15:29 Carbon Dioxide 26 mmol/L (22-30) 04/09/18 15:29 Anion Gap 15 mmol/L 04/09/18 15:29 BUN 6 mg/dL (7-17) L 04/09/18 15:29 Creatinine 0.5 mg/dL (0.7-1.2) L 04/09/18 15:29 Estimated GFR > 60 ml/min 04/09/18 15:29 BUN/Creatinine Ratio 12 % 04/09/18 15:29 Glucose 140 mg/dL (65-100) H 04/09/18 15:29 POC Glucose 119 (70-105) H 04/10/18 11:44 Calcium 8.8 mg/dL (8.4-10.2) 04/09/18 15:29 Total Creatine Kinase 62 units/L (30-135) 04/10/18 Unknown CK-MB (CK-2) 1.4 ng/mL (0.0-4.0) 04/10/18 Unknown CK-MB (CK-2) Rel Index 2.2 (0-4) 04/10/18 Unknown Troponin T < 0.010 ng/mL (0.00-0.029) 04/10/18 Unknown NT-Pro-B Natriuret Pep 51.33 pg/mL (0-900) 04/10/18 Unknown TSH 1.320 mlU/mL (0.270-4.200) 04/10/18 09:09
[2018-04-10] MEDS ORDERED: CLARITIN PO PRN (18:00)
[2018-04-10] MEDS ORDERED: CLARITIN PO SCH (18:00)
[2018-04-10] MEDS: ASPIRIN PO SCH (18:49)
[2018-04-10] MEDS: LASIX PO SCH (18:49)
[2018-04-10] MEDS: KEPPRA PO SCH (18:50)
[2018-04-10] MEDS: PLAVIX PO SCH (18:50)
[2018-04-10] MEDS ORDERED: LANTUS SUB-Q SCH (22:00)
[2018-04-10] MEDS: COREG PO SCH (22:07)
[2018-04-10] MEDS: SENOKOT S PO SCH (22:08)
[2018-04-10] MEDS: APRESOLINE PO SCH (22:08)
[2018-04-10] MEDS: NAMENDA PO SCH (22:08)
[2018-04-10] MEDS: NEURONTIN PO SCH (22:09)
[2018-04-10] MEDS: GLUCOTROL PO SCH (22:09)
[2018-04-11] MEDS: PROVENTIL IH SCH ×5 (00:42→19:51)
[2018-04-11 05:47] LABS: Hematocrit 35.6 % (30.3-42.9); Hemoglobin 11.5 gm/dl (10.1-14.3); Mean Corpuscular HGB Conc 32 % (30-34); Mean Corpuscular Hemoglobin 27 pg (28-32); Mean Corpuscular Volume 83 fl (79-97); Platelet Count 298 K/mm3 (140-440); Red Blood Count 4.28 M/mm3 (3.65-5.03); Red Cell Distribution Width 18.2 % (13.2-15.2)
[2018-04-11 06:12] LABS: BUN/Creatinine Ratio 12; Blood Urea Nitrogen 6 mg/dL (7-17); Hemolysis Index 9
[2018-04-11] MEDS: HumaLOG SUB-Q SCH ×3 (07:30→16:18)
[2018-04-11] MEDS: NEURONTIN PO SCH ×3 (09:03→21:53)
[2018-04-11] MEDS ORDERED: LOSARTAN PO SCH (10:00)
[2018-04-11] MEDS: APRESOLINE PO SCH ×2 (10:00→21:54)
[2018-04-11] MEDS: GLUCOTROL PO SCH (10:00)
[2018-04-11] MEDS: MUCINEX ER PO SCH ×2 (10:00→21:53)
[2018-04-11] MEDS: COZAAR PO SCH (10:29)
--- NOTE | 2018-04-11 11:25 | Progress Note ---
Assessment and Plan - Patient Problems (1) CVA (cerebral vascular accident) Current Visit: Yes Status: Acute (2) HTN (hypertension) Current Visit: Yes Status: Acute (3) Dementia Current Visit: Yes Status: Acute (4) Cough Current Visit: Yes Status: Acute (5) Pericardial effusion Current Visit: Yes Status: Acute Subjective Date of service: 04/11/18 Interval history: cough continues,,,NO CP OR SOB Objective Vital Signs Temp Pulse Pulse Pulse Resp Resp Resp 04/11/18 08:04 98.2 F 66 20 04/11/18 07:50 18 04/11/18 07:42 74 74 18 18 04/11/18 04:31 98.2 F 64 18 04/11/18 00:55 72 18 04/11/18 00:43 70 18 04/11/18 00:06 99.1 F 73 18 04/10/18 22:08 72 04/10/18 22:07 72 04/10/18 20:02 99.0 F 72 18 04/10/18 20:00 04/10/18 17:20 70 19 04/10/18 17:10 72 20 04/10/18 16:31 99.0 F 69 20 04/10/18 13:09 98.8 F 71 18 04/10/18 11:33 79 20 BP Pulse Ox 04/11/18 08:04 176/71 97 04/11/18 07:50 04/11/18 07:42 96 04/11/18 04:31 162/78 97 04/11/18 00:55 04/11/18 00:43 04/11/18 00:06 176/73 92 04/10/18 22:08 181/75 04/10/18 22:07 181/75 04/10/18 20:02 181/75 92 04/10/18 20:00 96 04/10/18 17:20 04/10/18 17:10 04/10/18 16:31 162/77 98 04/10/18 13:09 141/60 99 04/10/18 11:33 98 - Physical Examination General: No Apparent Distress, Other (OW) Neck: Positive: neck supple Cardiac: Positive: Regular Rhythm Lungs: Positive: clear to auscultation Neuro: Positive: Other (DEFFER) Abdomen: Positive: Unremarkable, Soft Skin: Positive: Clear Extremities: Present: normal - Labs and Meds CBC 04/11/18 Range/Units 04:18 WBC 8.5 (4.5-11.0) K/mm3 RBC 4.28 (3.65-5.03) M/mm3 Hgb 11.5 (10.1-14.3) gm/dl Hct 35.6 (30.3-42.9) % Plt Count 298 (140-440) K/mm3 Comprehensive Metabolic Panel 04/11/18 Range/Units 04:18 Sodium 138 D (137-145) mmol/L Potassium 3.7 (3.6-5.0) mmol/L Chloride 98.7 (98-107) mmol/L Carbon Dioxide 27 (22-30) mmol/L BUN 6 L (7-17) mg/dL Creatinine 0.5 L (0.7-1.2) mg/dL Glucose 45 L (65-100) mg/dL Calcium 9.0 (8.4-10.2) mg/dL
--- NOTE | 2018-04-11 13:01 | Progress Note ---
Assessment and Plan Assessment and plan: Ms. Louis is a 68 yo woman from [place] with a history of hypertension, cva with dysarthia and left hemiparesis, seizure disorder, ex smoker, asthma, dementia and dm type 2 who was sent for evaluation of pericardial effusion which was seen on ECHO at the [facility] office. per ED records the "Family states the [facility] but did not improve. Cough has been persistent and remains nonproductive. The patient's daughter noticed the patient had a "low-grade fever" this week. The patient's family wanted the patient be sent to the emergency department for evaluation however [facility] scientific manager's office today for evaluation. The patient had an echocardiogram performed in the office today that was read as "poor study with small pericardial effusion LVEF in the range of 45-50%" the patient was sent to the ED by the scientific manager for CT scan of the chest to reevaluate the pericardial effusion, rule out pulmonary edema and evaluate for pneumonia given her cough and recent fever." * CTA chest IMPRESSION: Moderate size pericardial effusion. No evidence of pulmonary embolus, or vascular congestion. Mild atelectatic changes in both lower lobes and to lesser extent in the lingula. -Pericardial effusion: Cardiology is managing. -Cough most likely related to the above: Mucinex and nebulizer breathing treatments -Hyponatremia: Placed on fluid restriction, monitor sodium level -IDDM2: ada diet, ssi, check a1c==>6.7, stopped lantus started last night by Dr. Nunez -History of CVA with residual left-sided weakness -Hypertension: Resume home antihypertensives when reconciled, PRN IV hydralazine -Seizure disorder: Resume antiseizure agents when reconciled, Seizure precautions -History of dementia without behavioral disturbances -History of asthma w/o acute exacerbation -DVT prophylaxis with Lovenox History Interval history: Patient was seen and examined. Follow-up on current diagnosis of cough, still present. Overnight uneventful. Patient denies any chest pain, shortness breath, nausea/vomiting or severe headaches. Imaging, nursing note, chart, labs and old chart reviewed. Discussed with patient. Hospitalist Physical - Physical exam Narrative exam: GEN: WDWN, NAD, Awake, Alert, Orientated HEENT: NCAT, EOMI, PERRL, OP Clear NECK: supple, no adenopathy, no thyromegaly, no JVD CVS/HEART: RRR, normal S1S2, pulses present bilaterally CHEST/LUNGS: CTA B, Symmetrical chest expansion, good air entry bilaterally GI/Abdomen: soft, NTND, good bowel sounds, no guarding or rebound /Bladder: no suprapubic tenderness, no CVA or paraspinal tenderness EXT/Skin: no c/c/e, no obvious rash MSK: FROM x 4 Neuro: CN 2-12 grossly intact, no new focal deficits Psych: calm - Constitutional Vitals: Temp Pulse Resp BP Pulse Ox 98.2 F 66 20 176/71 97 04/11/18 08:04 04/11/18 08:04 04/11/18 08:04 04/11/18 08:04 04/11/18 08:04 General appearance: Present: no acute distress, well-nourished Results - Labs CBC & Chem 7: 04/11/18 04:18 04/11/18 04:18 Labs: Laboratory Last Values WBC 8.5 K/mm3 (4.5-11.0) 04/11/18 04:18 RBC 4.28 M/mm3 (3.65-5.03) 04/11/18 04:18 Hgb 11.5 gm/dl (10.1-14.3) 04/11/18 04:18 Hct 35.6 % (30.3-42.9) 04/11/18 04:18 MCV 83 fl (79-97) 04/11/18 04:18 MCH 27 pg (28-32) L 04/11/18 04:18 MCHC 32 % (30-34) 04/11/18 04:18 RDW 18.2 % (13.2-15.2) H 04/11/18 04:18 Plt Count 298 K/mm3 (140-440) 04/11/18 04:18 Lymph % (Auto) 27.5 % (13.4-35.0) 04/09/18 15:29 [place] % (Auto) 4.4 % (0.0-7.3) 04/09/18 15:29 Eos % (Auto) 1.9 % (0.0-4.3) 04/09/18 15:29 Baso % (Auto) 0.5 % (0.0-1.8) 04/09/18 15:29 Lymph # 3.0 K/mm3 (1.2-5.4) 04/09/18 15:29 [place] # 0.5 K/mm3 (0.0-0.8) 04/09/18 15:29 Eos # 0.2 K/mm3 (0.0-0.4) 04/09/18 15:29 Baso # 0.1 K/mm3 (0.0-0.1) 04/09/18 15:29 Seg Neutrophils % 65.7 % (40.0-70.0) 04/09/18 15: Seg Neutrophils # 7.2 K/mm3 (1.8-7.7) 04/09/18 15:29 Sodium 138 mmol/L (137-145) D 04/11/18 04:18 Potassium 3.7 mmol/L (3.6-5.0) 04/11/18 04:18 Chloride 98.7 mmol/L (98-107) 04/11/18 04:18 Carbon Dioxide 27 mmol/L (22-30) 04/11/18 04:18 Anion Gap 16 mmol/L 04/11/18 04:18 BUN 6 mg/dL (7-17) L 04/11/18 04:18 Creatinine 0.5 mg/dL (0.7-1.2) L 04/11/18 04:18 Estimated GFR > 60 ml/min 04/11/18 04:18 BUN/Creatinine Ratio 12 % 04/11/18 04:18 Glucose 45 mg/dL (65-100) L 04/11/18 04:18 POC Glucose 127 (70-105) H 04/11/18 08:11 Hemoglobin A1c 6.7 % (4-6) H 04/11/18 04:18 Calcium 9.0 mg/dL (8.4-10.2) 04/11/18 04:18 Total Creatine Kinase 62 units/L (30-135) 04/10/18 Unknown CK-MB (CK-2) 1.4 ng/mL (0.0-4.0) 04/10/18 Unknown CK-MB (CK-2) Rel Index 2.2 (0-4) 04/10/18 Unknown Troponin T < 0.010 ng/mL (0.00-0.029) 04/10/18 Unknown NT-Pro-B Natriuret Pep 51.33 pg/mL (0-900) 04/10/18 Unknown TSH 1.320 mlU/mL (0.270-4.200) 04/10/18 09:09
[2018-04-11] MEDS ORDERED: D50W (25GM) Syringe IV ONE (14:00)
--- NOTE | 2018-04-11 14:27 | Hem/Onc Consultation ---
History of Present Illness - Reason for Consult Consult date: 04/11/18 - History of Present Illness Patient is a 68-year-old -[place] female with history of CHF and CVA, a resident of long term facility who was sent to the ED by the concrete floor installer for further evaluation of an abnormal finding on her echocardiogram. Per the patient's daughter, she has been having persistent cough for the past 1 month. This was initially evaluated with a chest x-ray which showed mild pleural effusion. Thereafter, she had an echocardiogram done which showed EF of 45-50% with mild pericardial effusion. CTA chest was then recommended for further evaluation, which showed moderate pericardial effusion. Patient had recent fever without chills at the long term. Patient states she had history of some form of female cancer about 20 years ago. Did not receive any chemotherapy or radiation but did have a hysterectomy she states. She complains of weight loss. Does complain of some lower extremity swelling occasionally. She hasn't not had a mammogram and sometimes she states. Because of pericardial effusion and oncology consult was called Past History Past Medical History: diabetes, hypertension, seizures, other (CHF, dementia, asthma, CVA with left sided residual weakness) Past Surgical History: hysterectomy Social history: smoking (ex-smoker, quit 10 years ago. She denies alcohol or illicit drug use) Family history: other (reviewed and noncontributory) Medications and Allergies Allergies Allergy/AdvReac Type Severity Reaction Status Date / Time lisinopril AdvReac Unknown Verified 09/13/13 15:13 Penicillins AdvReac Unknown Verified 09/13/13 15:13 red dye AdvReac Unknown Verified 09/13/13 15:13 Home Medications Medication Instructions Recorded Confirmed Last Taken Type Aspirin 1 tab PO DAILY 09/13/13 04/10/18 04/09/18 History Carvedilol [Coreg] 1 tab PO BID 09/13/13 04/10/18 04/09/18 History Clopidogrel Bisulfate [Plavix] 1 tab PO DAILY 09/13/13 04/10/18 04/09/18 History Furosemide [Lasix] 10 mg PO DAILY 09/13/13 04/10/18 04/09/18 History Gabapentin [Neurontin] 1 tab PO TID 09/13/13 04/10/18 04/09/18 History Gemfibrozil [Lopid] 1 tab PO DAILY 09/13/13 04/10/18 04/09/18 History Insulin Glargine,Hum.rec.anlog 20 units SC HS 09/13/13 04/10/18 04/09/18 History [Lantus Solostar] Insulin Regular, Human [HumuLIN R] 6 - 12 units SC AC 09/13/13 04/10/18 History Loratadine [Claritin] 1 tab PO PRN 09/13/13 04/10/18 04/09/18 History Losartan [Cozaar] 1 tab PO DAILY 09/13/13 04/10/18 04/09/18 History Memantine HCl [Namenda] 1 tab PO BID 09/13/13 04/10/18 04/09/18 History Potassium Chloride 1 tab PO DAILY 09/13/13 04/10/18 04/09/18 History Sennosides/Docusate Sodium [Senna 1 tab PO BID 09/13/13 04/10/18 04/09/18 History S Tablet] Sertraline [Zoloft] 50 mg PO DAILY 09/13/13 04/10/18 04/09/18 History glipiZIDE [Glucotrol] 10 mg PO BID 09/13/13 04/10/18 04/09/18 History hydrALAZINE [Apresoline TAB] 1 tab PO BID 09/13/13 04/10/18 04/09/18 History levETIRAcetam [Keppra] 1 tab PO DAILY 09/13/13 04/10/18 04/09/18 History Active Meds: Active Medications Acetaminophen (Tylenol) 650 mg PO Q4H PRN PRN Reason: Pain MILD(1-3)/Fever >100.5/BENSON Acetaminophen/Hydrocodone Bitart ([place] 5/325) 1 each PO Q6H PRN PRN Reason: Pain, Moderate (4-6) Last Admin: 04/10/18 10:27 Dose: 1 each Albuterol (Proventil) 2.5 mg IH Q6HRT [facility] Last Admin: 04/11/18 07:41 Dose: 2.5 mg Aspirin (Aspirin) 325 mg PO DAILY [facility] Last Admin: 04/10/18 18:49 Dose: 325 mg Carvedilol (Coreg) 6.25 mg PO BID [facility] Last Admin: 04/10/18 22:07 Dose: 6.25 mg Clopidogrel Bisulfate (Plavix) 75 mg PO DAILY [facility] Last Admin: 04/10/18 18:50 Dose: 75 mg Dextrose (D50w (25gm) Syringe) 50 ml IV PRN PRN PRN Reason: Hypoglycemia Last Admin: 04/11/18 07:23 Dose: 50 ml Enoxaparin Sodium (Lovenox) 40 mg SUB-Q QDAY [facility] Last Admin: 04/10/18 10:18 Dose: 40 mg Furosemide (Lasix) 10 mg PO DAILY [facility] Last Admin: 04/10/18 18:49 Dose: 10 mg Gabapentin (Neurontin) 300 mg PO TID [facility] Last Admin: 04/11/18 09:03 Dose: 300 mg Gemfibrozil (Lopid) 600 mg PO DAILY [facility] Glipizide (Glucotrol) 10 mg PO BID [facility] Last Admin: 04/10/18 22:09 Dose: 10 mg Guaifenesin (Mucinex Er) 600 mg PO Q12HR [facility] Last Admin: 04/10/18 22:07 Dose: 600 mg Hydralazine HCl (Apresoline) 10 mg IV Q6H PRN PRN Reason: Blood Pressure Last Admin: 04/10/18 10:28 Dose: 10 mg Hydralazine HCl (Apresoline) 25 mg PO BID [facility] Last Admin: 04/10/18 22:08 Dose: 25 mg Insulin Human Lispro (Humalog) 0 unit SUB-Q [facility]; Protocol Last Admin: 04/11/18 07:30 Dose: Not Given Levetiracetam (Keppra) 500 mg PO DAILY [facility] Last Admin: 04/10/18 18:50 Dose: 500 mg Loratadine (Claritin) 10 mg PO QDAY PRN PRN Reason: Allergy Symptoms Losartan Potassium (Cozaar) 100 mg PO QDAY [facility] Memantine (Namenda) 10 mg PO BID [facility] Last Admin: 04/10/18 22:08 Dose: 10 mg Ondansetron HCl (Zofran) 4 mg IV Q8H PRN PRN Reason: Nausea And Vomiting Last Admin: 04/10/18 10:28 Dose: 4 mg Senna/Docusate Sodium (Senokot S) 1 tab PO BID [facility] Last Admin: 04/10/18 22:08 Dose: 1 tab Sertraline HCl (Zoloft) 50 mg PO DAILY JONNY Sodium Chloride (Sodium Chloride Flush Syringe 10 Ml) 10 ml IV BID JONNY Last Admin: 04/10/18 22:09 Dose: 10 ml Sodium Chloride (Sodium Chloride Flush Syringe 10 Ml) 10 ml IV PRN PRN PRN Reason: LINE FLUSH Exam - Constitutional Vitals: Last Vital Signs Temp 98.2 F 04/11/18 08:04 Pulse 66 04/11/18 08:04 Resp 20 04/11/18 08:04 BP 176/71 04/11/18 08:04 Pulse Ox 97 04/11/18 08:04 Performance status: 4-completely disabled - Neck Neck: supple - Respiratory Respiratory effort: Positive: normal Respiratory: bilateral: diminished - Breasts Breasts: bilateral: other ( no masses found) - Cardiovascular Rhythm: regular - Gastrointestinal General gastrointestinal: Present: soft Results - Labs lab Results: Laboratory Results - last 24 hr 04/10/18 04/10/18 04/11/18 16:42 22:29 04:18 WBC 8.5 RBC 4.28 Hgb 11.5 Hct 35.6 MCV 83 MCH 27 L MCHC 32 RDW 18.2 H Plt Count 298 Sodium Potassium Chloride Carbon Dioxide Anion Gap BUN Creatinine Estimated GFR BUN/Creatinine Ratio Glucose POC Glucose 82 87 Hemoglobin A1c Calcium 04/11/18 04/11/18 04/11/18 04:18 04:18 07:15 WBC RBC Hgb Hct MCV MCH MCHC RDW Plt Count Sodium 138 D Potassium 3.7 Chloride 98.7 Carbon Dioxide 27 Anion Gap 16 BUN 6 L Creatinine 0.5 L Estimated GFR > 60 BUN/Creatinine Ratio 12 Glucose 45 L POC Glucose 43 L Hemoglobin A1c 6.7 H Calcium 9.0 04/11/18 04/11/18 08:11 12:49 WBC RBC Hgb Hct MCV MCH MCHC RDW Plt Count Sodium Potassium Chloride Carbon Dioxide Anion Gap BUN Creatinine Estimated GFR BUN/Creatinine Ratio Glucose POC Glucose 127 H 54 L Hemoglobin A1c Calcium Assessment and Plan Patient has pericardial effusion. I would order CT of the abdomen and pelvis since patient has had some form of [employer] malignancy. Will order CA-125, CEA, CA 19?9 and CA-27-29. May need rheumatologic evaluation. We will order sedimentation rate and NAOMIE If above mentioned tests are unremarkable, may need to follow her closely and if pericardial effusion worsens, may need cytology of the pericardial effusion
[2018-04-11] MEDS: LOVENOX SUB-Q SCH (15:53)
[2018-04-11] MEDS: KEPPRA PO SCH (15:55)
[2018-04-11] MEDS: LASIX PO SCH (15:56)
[2018-04-11] MEDS: ASPIRIN PO SCH (15:57)
[2018-04-11] MEDS: LOPID PO SCH (15:57)
[2018-04-11] MEDS: NAMENDA PO SCH ×2 (15:58→21:53)
[2018-04-11] MEDS: PLAVIX PO SCH (15:59)
[2018-04-11] MEDS: SODIUM CHLORIDE FLUSH SYRINGE 10 ML IV SCH ×2 (16:00→21:56)
[2018-04-11] MEDS: COREG PO SCH ×2 (16:00→21:55)
[2018-04-11] MEDS: SENOKOT S PO SCH ×2 (16:00→21:54)
[2018-04-11] MEDS: ZOLOFT PO SCH (16:16)
[2018-04-11] MEDS: D5/0.45NS 1,000 ML IV SCH (18:50)
--- NOTE | 2018-04-11 20:07 | Cat Scan Report ---
FINAL REPORT PROCEDURE: CT ABDOMEN PELVIS W CON TECHNIQUE: Computerized axial tomography of the abdomen and pelvis was performed after the IV injection of iodinated nonionic contrast. HISTORY: history of cancer COMPARISON: No prior studies are available for comparison. FINDINGS: Visualized lower thorax: Lower lung atelectasis. There is moderate pericardial effusion. Liver: Normal size and attenuation. Spleen: Normal size and attenuation. Gallbladder and biliary system: Multiple gallstones. Pancreas: Normal. Adrenals: Normal. Kidneys: Bilateral renal cysts measuring up to 1.2 cm. No hydronephrosis.. GI tract: No dilated loops of large or small bowel. There is moderate stool in the colon. There is diverticulosis of the sigmoid region. The appendix is not visualized. Lymph nodes and mesentery: Normal. Vasculature: Atherosclerotic calcifications. Bladder: Normal. Reproductive organs: Uterus is not seen consistent with hysterectomy. Peritoneum: No free fluid. Musculoskeletal structures: Degenerative change of the spine and hips. Other: None. IMPRESSION: Multiple gallstones. No biliary dilatation. Sigmoid diverticulosis. No obstruction or abscess. Pericardial effusion.
[2018-04-12] MEDS: HumaLOG SUB-Q SCH ×3 (00:38→12:46)
[2018-04-12] MEDS: PROVENTIL IH SCH ×3 (01:37→13:57)
[2018-04-12 05:11] LABS: Hematocrit 34.4 % (30.3-42.9); Hemoglobin 11.1 gm/dl (10.1-14.3); Mean Corpuscular HGB Conc 32 % (30-34); Mean Corpuscular Hemoglobin 27 pg (28-32); Mean Corpuscular Volume 83 fl (79-97); Platelet Count 270 K/mm3 (140-440); Red Blood Count 4.15 M/mm3 (3.65-5.03); Red Cell Distribution Width 18.6 % (13.2-15.2)
[2018-04-12 05:33] LABS: BUN/Creatinine Ratio 10; Blood Urea Nitrogen 5 mg/dL (7-17); Calcium 8.4 mg/dL (8.4-10.2); Hemolysis Index 0
[2018-04-12] MEDS: D5/0.45NS 1,000 ML IV SCH (07:41)
--- NOTE | 2018-04-12 08:43 | Hem/Onc Progress Note ---
Assessment and Plan Patient has pericardial effusion. CT of the abdomen and pelvis negative for malignancy CA-125, CEA, CA 19?9 and [id number] May need rheumatologic evaluation. We will order sedimentation rate and NAOMIE If above mentioned tests are unremarkable, may need to follow her closely and if pericardial effusion worsens, may need cytology of the pericardial effusion Subjective Date of service: 04/12/18 Interval history: pt feels fair Objective - Constitutional Vitals: Last Vital Signs Temp 98.7 F 04/12/18 05:38 Pulse 74 04/12/18 08:03 Resp 18 04/12/18 08:03 BP 150/68 04/12/18 05:38 Pulse Ox 99 04/12/18 05:38 - Respiratory Respiratory: bilateral: diminished - Cardiovascular Rhythm: regular - Gastrointestinal General gastrointestinal: Present: soft - Labs Lab Results: Laboratory Results - last 24 hr 04/11/18 04/11/18 04/11/18 08:11 12:49 14:33 WBC RBC Hgb Hct MCV MCH MCHC RDW Plt Count ESR 42 Sodium Potassium Chloride Carbon Dioxide Anion Gap BUN Creatinine Estimated GFR BUN/Creatinine Ratio Glucose POC Glucose 127 H 54 L Calcium 04/11/18 04/11/18 04/12/18 15:51 22:27 04:57 WBC 7.7 RBC 4.15 Hgb 11.1 Hct 34.4 MCV 83 MCH 27 L MCHC 32 RDW 18.6 H Plt Count 270 ESR Sodium Potassium Chloride Carbon Dioxide Anion Gap BUN Creatinine Estimated GFR BUN/Creatinine Ratio Glucose POC Glucose 143 H 108 H Calcium 04/12/18 04:57 WBC RBC Hgb Hct MCV MCH MCHC RDW Plt Count ESR Sodium 134 L Potassium 3.7 Chloride 97.2 L Carbon Dioxide 26 Anion Gap 15 BUN 5 L Creatinine 0.5 L Estimated GFR > 60 BUN/Creatinine Ratio 10 Glucose 99 POC Glucose Calcium 8.4
[2018-04-12 08:45] VITALS: BP 168/76
--- NOTE | 2018-04-12 10:12 | Progress Note ---
Assessment and Plan Shortness of breath cxr: cardiomegaly with small left pleural effusion Prior CVA Hypertension Diabetes Seizure disorder Echocardiogram results are pending. Subjective Date of service: 04/12/18 Objective Vital Signs Temp Pulse Pulse Resp Resp BP Pulse Ox 04/12/18 08:03 74 18 04/12/18 07:44 74 18 04/12/18 07:22 98.0 F 81 14 168/76 100 04/12/18 05:38 98.7 F 82 20 150/68 99 04/12/18 00:49 98.5 F 79 20 149/63 96 04/11/18 21:55 69 146/57 04/11/18 21:54 146/57 04/11/18 19:53 98.0 F 61 20 146/57 100 04/11/18 19:52 58 L 18 04/11/18 16:45 88 18 04/11/18 16:33 86 20 04/11/18 12:41 99.0 F 64 20 185/69 95 - Physical Examination General: No Apparent Distress Cardiac: Positive: Reg Rate and Rhythm Neuro: Positive: Other (DEFFER) Abdomen: Positive: Unremarkable, Soft Skin: Positive: Clear Extremities: Present: normal - Labs and Meds CBC 04/12/18 Range/Units 04:57 WBC 7.7 (4.5-11.0) K/mm3 RBC 4.15 (3.65-5.03) M/mm3 Hgb 11.1 (10.1-14.3) gm/dl Hct 34.4 (30.3-42.9) % Plt Count 270 (140-440) K/mm3 Comprehensive Metabolic Panel 04/12/18 Range/Units 04:57 Sodium 134 L (137-145) mmol/L Potassium 3.7 (3.6-5.0) mmol/L Chloride 97.2 L (98-107) mmol/L Carbon Dioxide 26 (22-30) mmol/L BUN 5 L (7-17) mg/dL Creatinine 0.5 L (0.7-1.2) mg/dL Glucose 99 (65-100) mg/dL Calcium 8.4 (8.4-10.2) mg/dL
[2018-04-12] MEDS: NEURONTIN PO SCH (10:18)
--- NOTE | 2018-04-12 11:00 | Progress Note ---
Assessment and Plan Assessment and plan: Ms. Louis is a 68 yo woman from [place] with a history of hypertension, cva with dysarthia and left hemiparesis, seizure disorder, ex smoker, asthma, dementia and dm type 2 who was sent for evaluation of pericardial effusion which was seen on ECHO at the [facility] office. per ED records the "Family states the patient was being treated at the [facility] cough medication but did not improve. Cough has been persistent and remains nonproductive. The patient's daughter noticed the patient had a "low-grade fever" this week. The patient's family wanted the patient be sent to the emergency department for evaluation however the [facility]p sent patient to her past due accounts clerk's office today for evaluation. The patient had an echocardiogram performed in the office today that was read as "poor study with small pericardial effusion LVEF in the range of 45-50%" the patient was sent to the ED by the past due accounts clerk for CT scan of the chest to reevaluate the pericardial effusion, rule out pulmonary edema and evaluate for pneumonia given her cough and recent fever." * CTA chest IMPRESSION: Moderate size pericardial effusion. No evidence of pulmonary embolus, or vascular congestion. Mild atelectatic changes in both lower lobes and to lesser extent in the lingula. -Pericardial effusion: Cardiology is managing who requested Heme/Onc to evaluate and send out labs ordered, recommended Rheumatology which would be outpatient follow-up -Cough most likely related to the above: Mucinex and nebulizer breathing treatments -Hyponatremia mild; monitor sodium level -IDDM2 with hypoglycemia: ada diet, ssi, checked a1c==>6.7, stopped lantus and glucotrol, stopped d5 45ns today as BG stable -History of CVA with residual left-sided hemiparesis -Hypertension: Resume home antihypertensives when reconciled, PRN IV hydralazine -Seizure disorder: Resume antiseizure agents when reconciled, Seizure precautions -History of dementia without behavioral disturbances: supportative care, fall precaution -Suspected Atrophic vaginitis, sees [facility] clinical pharmacy manager outpt, i called and spoke Dr. Espinosa who directed me to call Dr. Mills, message left. -History of asthma w/o acute exacerbation -DVT prophylaxis with Lovenox -Advance care planning: full code History Interval history: Patient was seen and examined. Follow-up on current diagnosis of cough, still present. Overnight uneventful. Patient denies any chest pain, shortness breath, nausea/vomiting or severe headaches. Imaging, nursing note, chart, labs and old chart reviewed. Discussed with patient. Hospitalist Physical - Physical exam Narrative exam: GEN: WDWN, NAD, Awake, Alert, Orientated HEENT: NCAT, EOMI, PERRL, OP Clear NECK: supple, no adenopathy, no thyromegaly, no JVD CVS/HEART: RRR, normal S1S2, pulses present bilaterally CHEST/LUNGS: CTA B, Symmetrical chest expansion, good air entry bilaterally GI/Abdomen: soft, NTND, good bowel sounds, no guarding or rebound /Bladder: no suprapubic tenderness, no CVA or paraspinal tenderness EXT/Skin: no c/c/e, no obvious rash MSK: FROM x 4 Neuro: CN 2-12 grossly intact, no new focal deficits Psych: calm - Constitutional Vitals: Temp Pulse Resp BP Pulse Ox 98.0 F 74 18 168/76 100 04/12/18 07:22 04/12/18 08:03 04/12/18 08:03 04/12/18 07:22 04/12/18 07:22 General appearance: Present: no acute distress, well-nourished Results - Labs CBC & Chem 7: 04/12/18 04:57 04/12/18 04:57 Labs: Laboratory Last Values WBC 7.7 K/mm3 (4.5-11.0) 04/12/18 04:57 RBC 4.15 M/mm3 (3.65-5.03) 04/12/18 04:57 Hgb 11.1 gm/dl (10.1-14.3) 04/12/18 04:57 Hct 34.4 % (30.3-42.9) 04/12/18 04:57 MCV 83 fl (79-97) 04/12/18 04:57 MCH 27 pg (28-32) L 04/12/18 04:57 MCHC 32 % (30-34) 04/12/18 04:57 RDW 18.6 % (13.2-15.2) H 04/12/18 04:57 Plt Count 270 K/mm3 (140-440) 04/12/18 04:57 Lymph % (Auto) 27.5 % (13.4-35.0) 04/09/18 15:29 Cochran % (Auto) 4.4 % (0.0-7.3) 04/09/18 15:29 Eos % (Auto) 1.9 % (0.0-4.3) 04/09/18 15:29 Baso % (Auto) 0.5 % (0.0-1.8) 04/09/18 15:29 Lymph # 3.0 K/mm3 (1.2-5.4) 04/09/18 15:29 Cochran # 0.5 K/mm3 (0.0-0.8) 04/09/18 15: Eos # 0.2 K/mm3 (0.0-0.4) 04/09/18 15: Baso # 0.1 K/mm3 (0.0-0.1) 04/09/18 15:29 Seg Neutrophils % 65.7 % (40.0-70.0) 04/09/18 15:29 Seg Neutrophils # 7.2 K/mm3 (1.8-7.7) 04/09/18 15:29 ESR 42 mm/Hr (0-20) 04/11/18 14:33 Sodium 134 mmol/L (137-145) L 04/12/18 04:57 Potassium 3.7 mmol/L (3.6-5.0) 04/12/18 04:57 Chloride 97.2 mmol/L (98-107) L 04/12/18 04:57 Carbon Dioxide 26 mmol/L (22-30) 04/12/18 04:57 Anion Gap 15 mmol/L 04/12/18 04:57 BUN 5 mg/dL (7-17) L 04/12/18 04:57 Creatinine 0.5 mg/dL (0.7-1.2) L 04/12/18 04:57 Estimated GFR > 60 ml/min 04/12/18 04:57 BUN/Creatinine Ratio 10 % 04/12/18 04:57 Glucose 99 mg/dL (65-100) 04/12/18 04:57 POC Glucose 108 (70-105) H 04/11/18 22:27 Hemoglobin A1c 6.7 % (4-6) H 04/11/18 04:18 Calcium 8.4 mg/dL (8.4-10.2) 04/12/18 04:57 Total Creatine Kinase 62 units/L (30-135) 04/10/18 Unknown CK-MB (CK-2) 1.4 ng/mL (0.0-4.0) 04/10/18 Unknown CK-MB (CK-2) Rel Index 2.2 (0-4) 04/10/18 Unknown Troponin T < 0.010 ng/mL (0.00-0.029) 04/10/18 Unknown NT-Pro-B Natriuret Pep 51.33 pg/mL (0-900) 04/10/18 Unknown TSH 1.320 mlU/mL (0.270-4.200) 04/10/18 09:09
--- NOTE | 2018-04-12 11:10 | Discharge Summary ---
Providers - Providers Date of Admission: 04/10/18 03:13 Date of discharge: 04/12/18 Attending physician: RHONDA RAGSDALE 04/10/18 01:57 Consult to Physician [CONS] Urgent Comment: Dr. Chambers spoke with Dr. Valdes @ 0145 Consulting Provider: GAEL VALDES Physician Instructions: Reason For Exam: pericardial effusion 04/10/18 15:35 Speech Therapy Evaluation and Treat [CONS] Routine Reason For Exam: op dysphagia 04/11/18 13:01 Consult to Physician [CONS] Routine Comment: Consulting Provider: DAVIDA GANT Physician Instructions: Reason For Exam: pericardial effusion, Cardiology recommends eval Primary care physician: MEMO RYAN Hospitalization Condition: Stable Hospital course: Ms. Louis is a 68 yo woman from [place] with a history of hypertension, cva with dysarthia and left hemiparesis, seizure disorder, ex smoker, asthma, dementia and dm type 2 who was sent for evaluation of pericardial effusion which was seen on ECHO at the [facility] office. per ED records the "Family states the patient was being treated at the assisted cough medication but did not improve. Cough has been persistent and remains nonproductive. The patient's daughter noticed the patient had a "low-grade fever" this week. The patient's family wanted the patient be sent to the emergency department for evaluation however the assisted sent patient to her carbon grinder's office today for evaluation. The patient had an echocardiogram performed in the office today that was read as "poor study with small pericardial effusion LVEF in the range of 45-50%" the patient was sent to the ED by the carbon grinder for CT scan of the chest to reevaluate the pericardial effusion, rule out pulmonary edema and evaluate for pneumonia given her cough and recent fever." * CTA chest IMPRESSION: Moderate size pericardial effusion. No evidence of pulmonary embolus, or vascular congestion. Mild atelectatic changes in both lower lobes and to lesser extent in the lingula. -Moderate Pericardial effusion: Cardiology is managing who requested Heme/Onc to evaluate and send out labs ordered, recommended Rheumatology which would be outpatient follow-up -Cough with Bilateral Atelectasis, most likely related to the above: Mucinex and nebulizer breathing treatments -Hyponatremia mild; monitor sodium level -IDDM2 with hypoglycemia: ada diet, ssi, checked a1c==>6.7, stopped lantus and glucotrol, stopped d5 45ns today as BG stable -History of CVA with residual left-sided hemiparesis -Hypertension: Resume home antihypertensives when reconciled, PRN IV hydralazine -Seizure disorder: Resume antiseizure agents when reconciled, Seizure precautions -History of dementia without behavioral disturbances: supportative care, fall precaution -Suspected Atrophic vaginitis, sees [facility] nutrition associate outpt, i called and spoke Dr. Espinosa who directed me to call Dr. Mills, message left. -History of asthma w/o acute exacerbation -DVT prophylaxis with Lovenox -Advance care planning: full code D/W Cardiology, ok to d/c back to NH, see Cardiology 1 week Disposition: DC/TX-03 [facility] CERT Time spent for discharge: 35 minutes Core Measure Documentation - Palliative Care Palliative Care/ Comfort Measures: Not Applicable - Core Measures Any of the following diagnoses?: none - VTE Discharge Requirements Deep Vein Thrombosis/Pulmonary Embolism Present on Admission: No Has pt received <5 days of overlap therapy or INR<2.0: No Anticoagulant overlap therapy prescribed at discharge: No Contraindication No Overlap Therapy order at DC: Not Indicated Exam - Physical Exam Narrative exam: GEN: WDWN, NAD, Awake, Alert, Orientated HEENT: NCAT, EOMI, PERRL, OP Clear NECK: supple, no adenopathy, no thyromegaly, no JVD CVS/HEART: RRR, normal S1S2, pulses present bilaterally CHEST/LUNGS: CTA B, Symmetrical chest expansion, good air entry bilaterally GI/Abdomen: soft, NTND, good bowel sounds, no guarding or rebound /Bladder: no suprapubic tenderness, no CVA or paraspinal tenderness EXT/Skin: no c/c/e, no obvious rash MSK: left hemiparesis Neuro: CN 2-12 grossly intact, no new focal deficits Psych: calm - Constitutional Vitals: Temp Pulse Resp BP Pulse Ox 98.0 F 74 18 168/76 100 04/12/18 07:22 04/12/18 08:03 04/12/18 08:03 04/12/18 07:22 04/12/18 07:22 Plan Activity: up only with assistance, fall precautions, other (no strenous activity until cleared by Cardiology) Diet: low salt, diabetic Special Instructions: record daily BP diary, record blood sugar diary (check with meals three times a day, call MD if BG is 70 or less) Additional Instructions: Incentive spirometry q2hrs while awake with 10 reps for 1-2 weeks. Make an appointment with Dr. Farhana Mullins MD in [place], [place]. Specialties: Rheumatology. . Location: [address] [place] [address], [address], [address] Follow up with: DAVIDA GANT MD [Staff Physician] - 7 Days GAEL VALDES MD [Staff Physician] - 7 Days PRIMARY CAREMD [Referring] - 3-5 Days HANSA LYN MD [Staff Physician] - 7 Days Prescriptions: Acetaminophen [Acetaminophen TAB] 650 mg PO Q4H PRN #30 tablet PRN Reason: Pain MILD(1-3)/Fever >100.5/BENSON ALBUTEROL NEB's [Proventil 0.083% NEBS] 2.5 mg IH Q6HRT PRN #30 nebu PRN Reason: Shortness Of Breath HYDROcodone/APAP 5-325 [W[place]am 5-325 mg TAB] 1 each PO Q6H PRN #12 tablet PRN Reason: Pain, Moderate (4-6) Ipratropium/Albuterol Sulfate [DUONEB *Not for PRN Use*] 1 ampul IH Q8HR 3 Days #30 ampul.neb Lispro Insulin [Humalog] 1 dose SUB-Q ACHS PRN #1 vial PRN Reason: Hyperglycemia
[2018-04-12] MEDS: LOPID PO SCH (11:30)
[2018-04-12] MEDS: ZOLOFT PO SCH (11:30)
[2018-04-12] MEDS: SENOKOT S PO SCH (11:30)
[2018-04-12] MEDS: LOVENOX SUB-Q SCH (11:30)
[2018-04-12] MEDS: PLAVIX PO SCH (11:30)
[2018-04-12] MEDS: COREG PO SCH (11:31)
[2018-04-12] MEDS: ASPIRIN PO SCH (11:31)
[2018-04-12] MEDS: COZAAR PO SCH (11:39)
[2018-04-12] MEDS: KEPPRA PO SCH (11:40)
[2018-04-12] MEDS: APRESOLINE PO SCH (11:40)
[2018-04-12] MEDS: NAMENDA PO SCH (11:40)
[2018-04-12] MEDS: MUCINEX ER PO SCH (12:07)
[2018-04-12] MEDS: SODIUM CHLORIDE FLUSH SYRINGE 10 ML IV SCH (12:07)
[2018-04-12] MEDS: LASIX PO SCH (12:47)
[2018-04-14 13:18] LABS: ANA Screen, IFA Negative (Negative)
== END 2018-04-12 15:22 | DRG 315 ==
LOC: ED 14:42 → 4A 04-10 03:13
PROVIDERS: ADMIT Internal Medicine; ATTEND Internal Medicine
DX: I31.3 Pericardial effusion (noninflammatory) (principal); E87.1 Hypo-osmolality and hyponatremia; I69.354 Hemiplegia and hemiparesis following cerebral infarction affecting left non-dominant side; I11.0 Hypertensive heart disease with heart failure; I50.9 Heart failure, unspecified; J45.909 Unspecified asthma, uncomplicated; F03.90 Unspecified dementia, unspecified severity, without behavioral disturbance, psychotic disturbance, mood disturbance, and anxiety; R05 Cough; G40.909 Epilepsy, unspecified, not intractable, without status epilepticus; N76.0 Acute vaginitis; E11.649 Type 2 diabetes mellitus with hypoglycemia without coma; I69.322 Dysarthria following cerebral infarction; Z88.0 Allergy status to penicillin; Z88.8 Allergy status to other drugs, medicaments and biological substances; Z91.041 Radiographic dye allergy status; Z87.891 Personal history of nicotine dependence; Z79.899 Other long term (current) drug therapy; Z79.4 Long term (current) use of insulin; Z90.710 Acquired absence of both cervix and uterus
CPT/HCPCS: 36415; 71046; 71275; 74177; 80048; 82378; 82550; 82553; 82962; 83036; 83880; 84443; 84484; 85025; 85027; 85652; 86038; 86300; 86301; 86304; 93005; 93010; 93306; 94640; 94760; J0360; J1650; J1815; J2405; Q9967

== ENCOUNTER 2021-08-21 11:51 | Outpatient (CLI) | payer MEDICARE ==
--- NOTE | 2021-08-21 15:23 | Ultrasound Report ---
RIGHT DIGITAL DIAGNOSTIC MAMMOGRAM WITH CAD CONVENTIONAL, 08/21/2021 LEFT LIMITED BREAST ULTRASOUND CLINICAL INFORMATION / INDICATION: Patient presents for evaluation of an area of palpable concern in the left breast. A left mammogram is unable to be obtained secondary to patient condition and inabili ty to move the left arm. TECHNIQUE: Digital right mammographic imaging was performed. Left Limited ultrasound was performed. This examination was interpreted with the benefit of Computer-Aided Detection (CAD) analysis. COMPARISON: Prior mammogram 04/14/2013 FINDINGS: Breast Density: There are scattered areas of fibroglandular density. MAMMOGRAPHIC FINDINGS: No dominant mass, suspicious calcifications, or architectural distortion in th e right breast. A left mammogram was unable to be obtained secondary to patient condition and inabili ty to move the left arm. Targeted left breast ultrasound was performed for further evaluation of the patient's area of palpable concern. ULTRASOUND FINDINGS: Targeted ultrasound evaluation was performed of the area of interest. Targeted ultrasound of the area of palpable concern in the left breast 4:00 position located 3 cm from the ni pple reveals an irregular hypoechoic mass measuring up to 3.2 x 2.7 x 3.4 cm. Internal vascularity is demonstrated. The mass has apparent dermal involvement. Targeted ultrasound of the left axilla revea ls an abnormal lymph node measuring up to 1.4 x 1.4 cm, with diffuse cortical thickening measuring up to 7 mm in thickness. IMPRESSION: 1. An irregular hypoechoic mass in the 4:00 left breast corresponds with the site of palpable concern and is highly suggestive of malignancy, recommend surgical consultation and ultrasound-guided biopsy . An enlarged left axillary lymph node is worrisome for traci metastasis. Follow up recommendation: Biopsy BI-RADS Category 5: Highly Suggestive of Malignancy. A "normal" or negative report should not discourage follow up or biopsy of a clinically significant f inding. A written summary of these findings will be mailed to the patient. The patient will be entered into a mammography reporting system which will generate a reminder letter for the patient's next appointmen t at the appropriate interval. According to the [employer], yearly mammograms are recommended starting at age 40 and continuing as long as a woman is in good health. Breast MRI is recommended for women with an nikia roximately 20-25% or greater lifetime risk of breast cancer, including women with a strong family his tory of breast or ovarian cancer and women who have been treated for Hodgkin's disease. Signer Name: Caridad Hernandez MD Signed: 08/21/2021 3:16 PM Workstation Name: [id number]
== END 2021-08-21 11:52 | disposition home or self-care (01) ==
LOC: MAMMO 11:51
PROVIDERS: ATTEND Internal Medicine
DX: N63.23 Unspecified lump in the left breast, lower outer quadrant (principal); N63.25 Unspecified lump in the left breast, overlapping quadrants
CPT/HCPCS: 77066

== ENCOUNTER 2021-10-31 09:23 | Outpatient (CLI) | payer MEDICARE | END 2021-10-31 09:24 | disposition home or self-care (01) | LOC: LABHHL 09:23 | PROVIDERS: ATTEND Surgery | DX: N63.20 Unspecified lump in the left breast, unspecified quadrant (principal) | CPT/HCPCS: 88305 ==

== ENCOUNTER 2021-11-08 13:07 | Outpatient (CLI) | payer MEDICARE ==
--- NOTE | 2021-11-08 16:33 | XRay Report ---
LEFT SHOULDER 3 VIEWS INDICATION: PAIN IN LEFT SHOULDER. COMPARISON: None. IMPRESSION: No acute osseous or soft tissue abnormality. Mild osteoarthritic changes are identifi ed at the glenohumeral joint and AC joint. Signer Name: Rik Lay Jr, MD Signed: 11/08/2021 4:29 PM Workstation Name: [id number]
== END 2021-11-08 13:08 | disposition home or self-care (01) ==
LOC: XRAY 13:07
PROVIDERS: ATTEND Surgery
DX: M19.012 Primary osteoarthritis, left shoulder (principal)

== ENCOUNTER 2021-11-21 06:12 | Observation (INO) | payer MEDICARE ==
--- NOTE | 2021-11-18 12:37 | Electrocardiograph Report ---
[facility] Test Date: 2021-11-18 Test Time: 11:02:39 Pat Name: BERYL MADDEN Department: Room: Gender: F Crane Hooker: DANNIE : 1950 Requested By: JAIDA VILLATORO Order Number: [id number] Reading MD: Ortiz Macdonald Measurements Intervals [place] Rate: 70 P: 52 [place]: 193 QRS: 54 QRSD: 94 T: 63 QT: 425 QTc: 460 Interpretive Statements Sinus rhythm Poor R wave progression No previous ECG available for comparison Electronically Signed On 11-18-2021 12:37:31 EST by Ortiz Macdonald
--- NOTE | 2021-11-18 12:37 | Anesthesia Consultation ---
Anesthesia Consult and Med Hx Date of service: 11/21/21 - Airway Anesthetic Teeth Evaluation: Dentures ROM Head & Neck: Inadequate (limited extension) Mental/Hyoid Distance: Adequate Mallampati Class: Class III Intubation Access Assessment: Possibly Difficult - Pulmonary Exam CTA: Yes - Cardiac Exam Cardiac Exam: RRR - Pre-Operative Health Status ASA Pre-Surgery Classification: ASA3 Proposed Anesthetic Plan: General Nerve Block: PECs - Pulmonary Hx Smoking: Yes (former smoker) Hx Asthma: Yes Hx Respiratory Symptoms: Yes (negative COVID 11/14 per half-way verbal report) COPD: Yes (scheduled BID nebulizer treatments) - Cardiovascular System Hx Hypertension: Yes Hx Heart Attack/AMI: No Hx Percutaneous Transluminal Coronary Angioplasty (PTCA): No Hx Cardia Arrhythmia: No Hx Peripheral Vascular Disease: Yes (plavix held since 11/15/21) - Central Nervous System Hx Neuromuscular Disorder: No (peripheral neuropathy) Hx Seizures: Yes (remote hx; currently on AEDs) CVA: Yes (2003 w/ left sided weakness) Hx Psychiatric Problems: Yes (dementia) - Endocrine Hx Renal Disease: No Hx Liver Disease: No Hx Non-Insulin Dependent Diabetes: No Hx Thyroid Disease: No - Other Systems Hx Cancer: Yes (breast ca; no chemo) Hx Obesity: No - Additional Comments Anesthesia Medical History Comments: No hx anesthetic complications. Medical history obtained largely from daughter in room at time of exam. Per patient, will be overnight obs post-op.
--- NOTE | 2021-11-18 14:03 | XRay Report ---
CHEST 2 VIEWS INDICATION / CLINICAL INFORMATION: ASTHMA, COPD. COMPARISON: 04/09/2018 FINDINGS: SUPPORT DEVICES: None. HEART / MEDIASTINUM: Enlarged but stable LUNGS / PLEURA: No significant pulmonary or pleural abnormality. No pneumothorax. ADDITIONAL FINDINGS: No significant additional findings. IMPRESSION: 1. Cardiomegaly without acute findings. Signer Name: Sandro Vasquez MD Signed: 11/18/2021 1:58 PM Workstation Name: [email or web address]
[~2021-11-21 06:12] MED LIST: LACTATED RINGERS 1,000 ML IV SCH; MIDAZOLAM 2 MG/2 ML INJ IV NR; ceFAZolin/STERILE WATER 2 GM/20 ML SYRINGE IV NR; fentaNYL 100 MCG/2 ML INJ IV PRN
[2021-11-21 07:28] LABS: Basophils # (Auto) 0.1 K/mm3 (0.0-0.1); Basophils % (Auto) 0.7 % (0.0-1.8); Eosinophils # (Auto) 0.3 K/mm3 (0.0-0.4); Eosinophils % (Auto) 4.1 % (0.0-4.3); Hematocrit 35.5 % (30.3-42.9); Hemoglobin 11.2 gm/dl (10.1-14.3); Lymphocytes # (Auto) 2.5 K/mm3 (1.2-5.4); Lymphocytes % (Auto) 33.8 % (13.4-35.0); Mean Corpuscular HGB Conc 32 % (30-34); Mean Corpuscular Volume 87 fl (79-97); Monocytes # (Auto) 0.4 K/mm3 (0.0-0.8); Monocytes % (Auto) 5.9 % (0.0-7.3); Platelet Count 253 K/mm3 (140-440); Red Blood Count 4.09 M/mm3 (3.65-5.03); Red Cell Distribution Width 16.5 % (13.2-15.2)
[2021-11-21] MEDS: DEXTROSE 50% IN WATER (25GM) 50 ML SYRINGE IV ONE ×2 (07:30→07:40)
--- NOTE | 2021-11-21 07:44 | Anesthesia Day of Surgery ---
Anesthesia Day of Surgery - Day of Surgery Patient Examined: Yes Patient H&P Reviewed: Yes Patient is NPO: Yes
[2021-11-21 07:46] LABS: Alanine Aminotransferase 9 units/L (7-56); Albumin 3.5 g/dL (3.9-5); Blood Urea Nitrogen 14 mg/dL (7-17); Calcium 9.1 mg/dL (8.4-10.2); Hemolysis Index 13
[2021-11-21 07:50] LABS: BUN/Creatinine Ratio 23
[2021-11-21] MEDS ORDERED: DEXTROSE 50% IN WATER (25GM) 50 ML VIAL IV ONE (07:56)
[2021-11-21] MEDS ORDERED: GABAPENTIN 500 MG/10 ML ORAL LIQD PO NR (08:00)
[2021-11-21] MEDS ORDERED: dexAMETHasone 4 MG/ML VIAL ONE (08:11)
[2021-11-21] MEDS ORDERED: BUPIVACAINE/PF (0.25%) 2.5 MG/ML 30 ML VIAL INFILTRATI ONE (08:11)
[2021-11-21] MEDS ORDERED: HYDROmorphone 1 MG/1 ML INJ IV PRN (08:21)
[2021-11-21] MEDS ORDERED: ONDANSETRON 4 MG/2 ML INJ IV PRN ×2 (08:21→15:10)
[2021-11-21] MEDS ORDERED: HYDROmorphone 1 MG/1 ML INJ ONE (10:08)
[2021-11-21] MEDS ORDERED: LIDOCAINE MPF (2%) 20 MG/1 ML VIAL 5 ML ONE (10:08)
[2021-11-21] MEDS ORDERED: propofoL 200 MG/20 ML VIAL IV ONE (10:09)
[2021-11-21] MEDS ORDERED: ePHEDrine SULFATE 50 MG/1 ML INJ ONE (10:46)
[2021-11-21] MEDS ORDERED: METHYLENE BLUE 50 MG/10 ML AMP ONE (10:53)
[2021-11-21] MEDS ORDERED: SODIUM CHLORIDE P/F VIAL 10 ML 10 ML ONE (10:53)
[2021-11-21] MEDS ORDERED: LIDOCAINE (1%) 10 MG/1 ML VIAL 20 ML MDV INFILTRATI ONE (12:24)
[2021-11-21] MEDS ORDERED: METHYLENE BLUE 50 MG/10 ML AMP IRRIGATION ONE (12:24)
[2021-11-21] MEDS ORDERED: LIDOCAINE (1%) 10 MG/1 ML VIAL 20 ML MDV ONE (12:34)
[2021-11-21] MEDS ORDERED: SUGAMMADEX SODIUM 200 MG/2 ML VIAL IV ONE (13:21)
--- NOTE | 2021-11-21 14:31 | Operative Report ---
Operative Report Operative Report: Date of operation: 11/21/2021 Preop diagnosis: Left breast cancer Postop diagnosis: Same. Surgeon: Dr. Sainz Sales Enablement Lead: Dr. Han Anesthesia: General endotracheal anesthesia with rectus spinous plane block EBL: 50 cc Specimen: [place] lymph node #1 and 2, partial mastectomy with margins marked. Findings: This is an 71-year-old female with a left breast cancer located in the upper outer quadrant. Timeouts and consents were on the chart. Patient received 2 g of Ancef. Preoperatively the patient was marked for a crescent incision with mastopexy and a batwing. After injection 1 cc of technetium missed injected around the nipple areolar complex. In addition methylene blue and a 50-50 mix with saline was injected. The methylene blue was isolated to the areas of the crescent mastopexy. The breast is then prepped with ChloraPrep to include the axilla and the left arm arm. The arm is circumferentially draped. The neoprobe was used to locate the approximate location of the sentinel lymph node. An incision is made 1 cm below the hairline in the axilla. Sharp dissection is done with the electrocautery and 2 sentinel lymph nodes are found. When this is completed sterile gauze is placed into the wound. Attention is then turned to the breast where a #10 scalpel was used to make the crescent incision and the batwing incision. The crescent area is de- epithelialized. The palpable tumor is then dissected circumferentially dissected down to the chest wall. The overlying skin is included. The skin is part of the batwing incision. The specimen is then labeled with a short stitch on the cephalad margin, a long stitch on the lateral margin, and a short and long stitch on the deep surface. Hemostasis is obtained with electrocautery. Skin flaps are elevated for 5 cm. A flap is then also elevated for 5 cm just above the chest wall. The initial defect is noted to be 5 by 9 cm. After the flaps are elevated the defect is increased to 15 by 10 cm or 150 cm. 3-0 Vicryl sutures used to close the defect and advance the local adjacent tissue flaps. A drain is placed into the axilla and into the chest wall dissection. 3-0 Vicryl was used to close the axillary subcutaneous dissection. 4-0 Monocryl is used to close the skin in the axilla. 3-0 V-Lock suture is used to close the skin incision for the crescent and batwing incisions. A wound VAC is placed over both wounds. The procedure is ended.
[2021-11-21] MEDS ORDERED: ACETAMINOPHEN 325 MG TAB PO PRN (15:10)
[2021-11-21] MEDS ORDERED: diphenhydrAMINE 25 MG CAP PO PRN (15:10)
[2021-11-21] MEDS ORDERED: oxyCODONE /ACETAMINOPHEN 5-325MG TAB PO PRN (15:10)
[2021-11-21] MEDS ORDERED: HYDROmorphone 2 MG TAB PO PRN (15:10)
[2021-11-21] MEDS ORDERED: METOCLOPRAMIDE 10 MG TAB PO PRN (15:10)
[2021-11-21] MEDS ORDERED: LACTATED RINGERS 1,000 ML IV SCH (15:15)
[2021-11-21] MEDS ORDERED: KETOROLAC 10 MG TAB PO PRN (15:20)
[2021-11-21] MEDS ORDERED: hydrALAZINE 20 MG/1 ML INJ ONE (15:36)
[2021-11-21] MEDS ORDERED: hydrALAZINE 20 MG/1 ML INJ IV ONE (16:00)
[2021-11-21] MEDS ORDERED: ceFAZolin/NS 1 GM/50 ML 1 GM/50 ML BAG IV SCH ×2 (16:00)
--- NOTE | 2021-11-21 16:38 | Post Anesthesia Evaluation ---
- Post Anesthesia Evaluation Patient Participated: Yes Airway Patent: Yes Stable Respiratory Function: Yes Nausea/Vomiting: No Temp > 96.8F: Yes Pain Manageable: Yes Adequeate Hydration: Yes Anesthesia Complications: No
[2021-11-21] MEDS ORDERED: MELATONIN 5 MG TAB PO PRN (21:00)
[2021-11-21] MEDS: ceFAZolin/NS 1 GM/50 ML 1 GM/50 ML BAG IV SCH (21:01)
[2021-11-21] MEDS: hydrALAZINE 25 MG TAB PO SCH ×2 (21:03→22:25)
[2021-11-21] MEDS: DOCUSATE SODIUM 100 MG CAP PO SCH (21:03)
[2021-11-21] MEDS: GABAPENTIN 300 MG CAP PO SCH ×2 (22:10→22:26)
[2021-11-21] MEDS: carvediloL 25 MG TAB PO SCH ×2 (22:10→22:24)
[2021-11-21] MEDS: MEMANTINE 10 MG TAB PO SCH ×2 (22:11→22:25)
[2021-11-21] MEDS: levETIRAcetam 500 MG TAB PO SCH (22:11)
[2021-11-22] MEDS: ceFAZolin/NS 1 GM/50 ML 1 GM/50 ML BAG IV SCH (04:36)
[2021-11-22] MEDS ORDERED: LOSARTAN 50 MG TAB PO SCH (09:00)
[2021-11-22] MEDS ORDERED: CLOPIDOGREL 75 MG TAB PO SCH (09:00)
[2021-11-22] MEDS ORDERED: POTASSIUM CHLORIDE ER 10 MEQ TAB PO SCH (09:00)
[2021-11-22] MEDS ORDERED: FERROUS SULFATE 325 MG TAB PO SCH (09:00)
[2021-11-22] MEDS ORDERED: DONEPEZIL 5 MG TAB PO SCH (09:00)
[2021-11-22] MEDS: GABAPENTIN 300 MG CAP PO SCH (09:58)
[2021-11-22] MEDS: DOCUSATE SODIUM 100 MG CAP PO SCH (09:58)
[2021-11-22] MEDS: levETIRAcetam 500 MG TAB PO SCH ×2 (09:59→14:23)
[2021-11-22] MEDS: MEMANTINE 10 MG TAB PO SCH (09:59)
[2021-11-22] MEDS: carvediloL 25 MG TAB PO SCH (10:00)
[2021-11-22] MEDS: BUDESONIDE 0.25 MG/2 ML NEBU IH SCH ×2 (10:07→10:12)
--- NOTE | 2021-11-22 13:01 | Consultation ---
History of Present Illness - Reason for Consult Consult date: 11/22/21 - History of Present Illness This is an 71-year-old female with a left breast cancer located in the upper outer quadrant who was admitted for left mastectomy. Consultation is for medical management. Patient denies any complaints postoperatively. Patient denies any chest pain or shortness of breath. Past History Past Medical History: hypertension Past Surgical History: No surgical history Social history: no significant social history Family history: no significant family history Medications and Allergies Allergies Allergy/AdvReac Type Severity Reaction Status Date / Time shellfish derived Allergy Unknown Verified 11/12/21 12:48 Sulfa (Sulfonamide Allergy Unknown Verified 11/12/21 12:48 Antibiotics) lisinopril AdvReac Unknown Verified 11/12/21 12:48 morphine AdvReac Unknown Verified 11/21/21 07:39 Penicillins AdvReac Unknown Verified 11/12/21 12:48 red dye AdvReac Unknown Verified 11/12/21 12:48 Home Medications Medication Instructions Recorded Confirmed Last Taken Type Clopidogrel Bisulfate [Plavix] 75 tab PO DAILY 09/13/13 11/12/21 04/09/18 History Furosemide [Lasix] 20 mg PO 3XW 09/13/13 11/12/21 04/09/18 History ALBUTEROL NEB's [Proventil 0.083% 2.5 mg IH Q6HRT PRN #30 nebu 04/12/18 11/12/21 Unknown Rx NEBS] Acetaminophen [Acetaminophen TAB] 650 mg PO Q4H PRN #30 tablet 04/12/18 11/12/21 Unknown Rx Losartan [Cozaar] 100 mg PO QDAY #30 tablet 04/12/18 11/12/21 Unknown Rx Atorvastatin Calcium [Lipitor] 10 mg PO HS 11/12/21 11/12/21 Unknown History Budesonide [Pulmicort] 0.25 mg IH Q12HR 11/12/21 11/12/21 Unknown History Cholecalciferol (Vitamin D3) 125 mcg PO 1XW 11/12/21 11/12/21 Unknown History [Vitamin D3] Ferrous Sulfate [Ferrous Sulfate 325 mg PO DAILY 11/12/21 11/12/21 Unknown History 324 MG] Gabapentin 300 tab PO BID 11/12/21 11/12/21 Unknown History Melatonin [Melatonin 5MG CAP] 5 mg PO HS 11/12/21 11/12/21 Unknown History Memantine HCl [Namenda] 10 tab PO BID 11/12/21 11/12/21 Unknown History Potassium Chloride 10 meq PO DAILY 11/12/21 11/12/21 Unknown History Salmeterol Xinafoate [Serevent 50 mcg IH Q12HR 11/12/21 11/12/21 Unknown History Diskus] Sennosides/Docusate Sodium 1 tab PO DAILY 11/12/21 11/12/21 Unknown History [Senna-S Tablet] Travoprost [Travatan Z] 1 drop OP HS 11/12/21 11/12/21 Unknown History carvediloL [Coreg] 25 tab PO BID 11/12/21 11/12/21 Unknown History donepeziL [Aricept] 5 mg PO QDAY 11/12/21 11/12/21 Unknown History hydrALAZINE [Apresoline TAB] 25 tab PO TID 11/12/21 11/12/21 Unknown History levETIRAcetam [Keppra TAB] 500 tab PO TID 11/12/21 11/12/21 Unknown History Active Meds: Active Medications Acetaminophen (Acetaminophen 325 Mg Tab) 650 mg PO Q6H PRN PRN Reason: Pain MILD(1-3)/Fever >100.5/[facility]ENSON Last Admin: 11/22/21 12:17 Dose: 650 mg Atorvastatin Calcium (Atorvastatin 10 Mg Tab) 10 mg PO QHS [facility] Last Admin: 11/21/21 22:25 Dose: Not Given Budesonide (Budesonide 0.25 Mg/2 Ml Nebu) 0.25 mg IH Q12HRT [facility] Last Admin: 11/22/21 10:12 Dose: 0.25 mg Carvedilol (Carvedilol 25 Mg Tab) 25 mg PO BID [facility] Last Admin: 11/21/21 22:24 Dose: Not Given Clopidogrel Bisulfate (Clopidogrel 75 Mg Tab) 75 mg PO QDAY [facility] Last Admin: 11/22/21 09:58 Dose: 75 mg Diphenhydramine HCl (Diphenhydramine 25 Mg Cap) 25 mg PO Q8H PRN PRN Reason: Itching Docusate Sodium (Docusate Sodium 100 Mg Cap) 100 mg PO BID [facility] Last Admin: 11/22/21 09:58 Dose: 100 mg Donepezil HCl (Donepezil 5 Mg Tab) 5 mg PO QDAY [facility] Last Admin: 11/22/21 10:00 Dose: 5 mg Ferrous Sulfate (Ferrous Sulfate 325 Mg Tab) 325 mg PO QDAY [facility] Last Admin: 11/22/21 09:58 Dose: 325 mg Gabapentin (Gabapentin 300 Mg Cap) 300 mg PO BID [facility] Last Admin: 11/22/21 09:58 Dose: 300 mg Hydralazine HCl (Hydralazine 25 Mg Tab) 25 mg PO Q8HR [facility] Last Admin: 11/21/21 22:25 Dose: Not Given Hydromorphone HCl (Hydromorphone 2 Mg Tab) 1 mg PO Q6H PRN PRN Reason: Pain , Severe (7-10) Lactated Ringer's (Lactated Ringers) 1,000 mls @ 40 mls/hr IV DIRECT [facility] Last Admin: 11/22/21 09:55 Dose: 40 mls/hr Ketorolac Tromethamine (Ketorolac 10 Mg Tab) 10 mg PO Q6H PRN PRN Reason: Pain, Moderate (4-6) Stop: 11/26/21 15:19 Latanoprost (Latanoprost 0.005% Ophth Soln 2.5 Ml) 1 drops OU QPM [facility] Levetiracetam (Levetiracetam 500 Mg Tab) 500 mg PO TID [facility] Last Admin: 11/22/21 09:59 Dose: 500 mg Losartan Potassium (Losartan 50 Mg Tab) 100 mg PO QDAY [facility] Melatonin (Melatonin 5 Mg Tab) 5 mg PO QHS PRN PRN Reason: Sleep Last Admin: 11/21/21 22:11 Dose: 5 mg Memantine (Memantine 10 Mg Tab) 10 mg PO Q12HR [facility] Last Admin: 11/22/21 09:59 Dose: 10 mg Metoclopramide HCl (Metoclopramide 10 Mg Tab) 10 mg PO Q6H PRN PRN Reason: Nausea And Vomiting Ondansetron HCl (Ondansetron 4 Mg/2 Ml Inj) 4 mg IV Q8H PRN PRN Reason: N/V unrelieved by Reglan Potassium Chloride (Potassium Chloride Er 10 Meq Tab) 10 meq PO QDAY [facility] Last Admin: 11/22/21 09:59 Dose: 10 meq Sodium Chloride (Sodium Chloride 0.9% 10 Ml Flush Syringe) 10 ml IV PRN PRN PRN Reason: LINE FLUSH Review of Systems All systems: negative Exam - Constitutional Vitals: Temp Pulse Resp BP Pulse Ox 98.2 F 62 14 122/38 99 11/22/21 09:46 11/22/21 10:12 11/22/21 10:12 11/22/21 09:46 11/22/21 09:46 General appearance: Present: no acute distress, well-nourished - EENT Eyes: Present: PERRL ENT: hearing intact, clear oral mucosa - Neck Neck: Present: supple, normal ROM - Respiratory Respiratory effort: normal Respiratory: bilateral: CTA - Cardiovascular Heart Sounds: Present: S1 & S2. Absent: rub, click - Extremities Extremities: pulses symmetrical, No edema Peripheral Pulses: within normal limits - Abdominal General gastrointestinal: Present: soft, non-tender, non-distended, normal bowel sounds Female genitourinary: Present: normal - Integumentary Integumentary: Present: clear, warm, dry - Musculoskeletal Musculoskeletal: gait normal, strength equal bilaterally - Psychiatric Psychiatric: appropriate mood/affect, intact judgment & insight - Neurologic Neurologic: CNII-XII intact, moves all extremities Results - Labs CBC & Chem 7: 11/21/21 07:10 11/21/21 07:10 Labs: Abnormal lab results 11/21/21 Range/Units 14:14 POC Glucose 108 H (70-105) mg/dL Assessment and Plan Left breast cancer s/p mastectomy. Hypertension 11/22/2021. Continue local wound care and wound VAC as needed. Continue per surgery recommendations. Patient appears to be normotensive at present. Hold antihypertensive medications for now. Continue to monitor. Continue supportive care and pain control.
--- NOTE | 2021-11-22 13:54 | Progress Note ---
Assessment and Plan We'll continue to observe the blood pressure through early part of the afternoon can still consider discharge to residential later this evening. Evaluation by hospitalist appreciated. Subjective Date of service: 11/22/21 Patient Reports: Positive: no new complaints Narrative: Patient status post partial mastectomy and sentinel node biopsy on the left side. Nursing is noting low diastolic blood pressures. The antihypertensive medications have been held. Consultation to hospitalist have been made for possibly eliminating some of the antihypertensives. Patient does appear stable and is otherwise able to be discharged back to the residential. Objective Vital Signs - 12hr 11/22/21 11/22/21 11/22/21 04:50 08:00 09:46 Temperature 98.8 F 98.2 F Pulse Rate 54 L 58 L Pulse Rate [ Anterior Bilateral Throughout] Respiratory 16 16 Rate Respiratory Rate [Anterior Bilateral Throughout] Blood Pressure 125/50 Blood Pressure 122/38 [Right] O2 Sat by Pulse 98 99 99 Oximetry 11/22/21 11/22/21 10:12 13:09 Temperature 98.1 F Pulse Rate 64 Pulse Rate [ 62 Anterior Bilateral Throughout] Respiratory 18 Rate Respiratory 14 Rate [Anterior Bilateral Throughout] Blood Pressure 131/32 Blood Pressure [Right] O2 Sat by Pulse 100 Oximetry - Labs 11/21/21 07:10 11/21/21 07:10
--- NOTE | 2021-11-22 14:13 | Discharge Summary ---
Providers - Providers Date of Admission: 11/21/21 15:10 Date of discharge: 11/22/21 Attending physician: JAIDA VILLATORO MD 11/21/21 18:21 Consult to Wound/ET Nurse [CONS] Stat Reason For Exam: wound eval 11/21/21 18:24 Physical Therapy Evaluation and Treat [CONS] Routine Comment: Reason For Exam: eval Speech Therapy Evaluation and Treat [CONS] Routine Reason For Exam: eval 11/22/21 10:28 Consult to Case Management [CONS] Routine Services Needed at Discharge: Other Notified:: Yes Phone number called:: [phone] Additional Physician Instructions: patient to d/c back to SNF Primary care physician: [facility] Hospitalization Condition: Stable Disposition: 03 LONG-TERM FACILITY Final Discharge Diagnosis (Prints w/discharge instructions): locally advanced left breast cancer Time spent for discharge: 30min - Discharge Diagnoses (1) Breast cancer Status: Acute Qualifiers: Breast location: upper outer quadrant of breast Estrogen receptor status: positive Patient sex: female Laterality: left Qualified Code(s): C50.412 - Malignant neoplasm of upper-outer quadrant of left female breast; Z17.0 - Estrogen receptor positive status [ER+] (2) CVA (cerebral vascular accident) Status: Acute Qualifiers: CVA mechanism: unspecified Qualified Code(s): I63.9 - Cerebral infarction, unspecified (3) Cough Status: Chronic (4) Dementia Status: Chronic (5) HTN (hypertension) Status: Chronic (6) Pericardial effusion Status: Inactive Core Measure Documentation - Palliative Care Palliative Care/ Comfort Measures: Not Applicable - Core Measures Any of the following diagnoses?: stroke (chronic stable) - Stroke Discharge Requirements Anticoag for atrial fib/atrial flutter: No (pt with recetn surgery) Reason for no anticoag for AF/F on DC: Medical Contraindication Antithrombotic for ischemic stroke: No Reason for no antithrombotic on DC: Medical Contraindication Exam - Constitutional Vitals: Temp Pulse Resp BP Pulse Ox 98.1 F 58 L 18 114/35 100 11/22/21 13:09 11/22/21 14:02 11/22/21 13:09 11/22/21 14:02 11/22/21 13:09 General appearance: Present: no acute distress - Neck Neck: Present: supple, normal ROM - Respiratory Respiratory effort: normal - Cardiovascular Rhythm: regular - Extremities Extremities: no ischemia, No edema - Abdominal General gastrointestinal: Present: soft, non-tender - Neurologic Neurologic: CNII-XII intact Plan Activity: fall precautions Weight Bearing Status: Partial Weight Bearing Diet: low fat, low salt Wound: other Care Plan Goals: Resume all preop levels of actitities Health Concerns: breast ccancer requiring eval by Dr. Bangura med/onc Follow up with: PRIMARY CAREMD [Primary Care Provider] - 7 Days
[2021-11-22] MEDS: hydrALAZINE 25 MG TAB PO SCH (14:16)
[2021-11-22 19:02] VITALS: BP 144/52
[2021-11-22] MEDS ORDERED: LATANOPROST 0.005% OPHTH SOLN 2.5 ML OU SCH (21:00)
== END 2021-11-22 19:15 ==
LOC: OR 06:12 → OB 15:10
PROVIDERS: ADMIT Surgery; ATTEND Surgery
DX: C50.612 Malignant neoplasm of axillary tail of left female breast (principal); C50.412 Malignant neoplasm of upper-outer quadrant of left female breast; I10 Essential (primary) hypertension; I63.9 Cerebral infarction, unspecified; F03.90 Unspecified dementia, unspecified severity, without behavioral disturbance, psychotic disturbance, mood disturbance, and anxiety; I31.3 Pericardial effusion (noninflammatory); T81.89XA Other complications of procedures, not elsewhere classified, initial encounter; R05.9 Cough, unspecified; Z79.02 Long term (current) use of antithrombotics/antiplatelets; Z79.899 Other long term (current) drug therapy; Z98.890 Other specified postprocedural states; Z48.01 Encounter for change or removal of surgical wound dressing
CPT/HCPCS: 19303; 36415; 38525; 38792; 64450; 71046; 78800; 80053; 82962; 85025; 88307; 88341; 88342; 92610; 93005; 93010; 94640; 94760; 96365; 96366; 97110; 97162; 97606; A9541; G0378; J0360; J0690; J1100; J1170; J2250; J2704; J3010; J3490; J7120; Q9968; 88333